=== PATIENT | female | born 1995 | race Caucasian/White ===

== ENCOUNTER 2019-11-29 16:31 | Emergency (ER) | payer MEDICAID, SELFPAY ==
--- NOTE | 2019-11-29 16:40 | USR_ITS ---
PROCEDURE INFORMATION: Exam: US First Trimester, Transabdominal and US , Transvaginal Exam date and time: 11/29/2019 5:34 PM Age: 23 years old Clinical indication: Pain; Other: Cramping; Gestational age or lmp: Patient unsure; Additional info: Threatened miscarriage TECHNIQUE: Imaging protocol: Real-time transabdominal obstetrical ultrasound of the maternal pelvis and a first trimester , less than 14 weeks 0 days, with image documentation. Transvaginal imaging was used for better evaluation of the fetus and adnexa. COMPARISON: US transvaginal [id number] 08/15/2018 3:30 PM FINDINGS: Gestation: Single intrauterine gestational sac with a mean diameter of 16 mm. No yolk sac, pole, or heart tones detected. MATERNAL: Uterus: The uterus measures 12.7 x 8.8 x 4.9 cm. Cervix: Unremarkable. Right adnexa: The right ovary measures 2.1 x 4.4 x 2.1 cm and is normal. Left adnexa: The left ovary measures 1.7 x 3.9 x 2.6 cm and is normal. Intraperitoneal space: No intraperitoneal free fluid. US/US OB <=14 wk fetus w transvag IMPRESSION: 1. Single intrauterine gestational sac with no pole or heart tones detected. This may represent a normal early . Viability follow-up with ultrasound in 14 or greater days recommended.
[2019-11-29 16:45] VITALS: BP 132/84; PULSE 82; RESP 18; TEMP 36.7; O2SAT 100
[2019-11-29 16:53] VITALS: BMI 31.2
--- NOTE | 2019-11-29 17:59 | ED_ITS ---
HPI - Abdominal Pain General: Chief Complaint: Abdominal Pain Stated Complaint: ref from [facility] Time Seen by Provider: 11/29/19 17:14 Source: patient Mode of arrival: ambulatory Limitations: no limitations History of Present Illness: HPI narrative: Patient is a 23-year-old female who presents to ED today after she was sent by [facility] for an OB ultrasound. She went to their facility earlier today complaining of lower abdominal pain and thought she might be . Unknown LMP (states she believes she had a period 4 months ago/periods are very irregular) but thought she might be 4 to 6 weeks along. Patient had a positive test at their facility. hCG at that visit was 21,677. Patient's lab work overall looked okay. White count was 10.5. She had questionable UTI so they placed her on Macrobid. She had trichomonas present in her urine so they gave her 2g Flagyl. She was sent to our facility for US to rule out ectopic. Associated Symptoms: Denies change in bowel habits, change in stool character, chills, diarrhea, dysuria, fever(s), hematuria, nausea and vomiting Review of Systems Const: Denies: fever(s), chills, body aches, fatigue or malaise ENMT: Denies: throat pain or odynophagia Card: Denies: chest pain Resp: Denies: dyspnea GI: Reports: abdominal pain; Denies: nausea, vomiting, diarrhea, change in bowel habits or change in stool character : Reports: pelvic pain; Denies: flank pain, difficulty voiding, dysuria, urinary frequency, urinary urgency, urinary hesitancy, hematuria, genital lesions, genital pruritis, vaginal odor, vaginal bleeding or vaginal discharge Musc: Denies: neck pain, back pain, extremity pain, extremity swelling, joint pain or joint swelling Skin/Breast: Denies: rash Neuro: Denies: headache(s), numbness in extremities, weakness in extremities or sensory changes PFSH ED PFSH: Social History (Updated 08/16/19 @ 18:24 by Leidy Fuentes LPN) Smoking and tobacco status: current every day smoker Alcohol intake: current Female Reproductive History: : 2 Physical Exam Const: COMMON NORMALS: no acute distress, average body habitus, patient oriented x3, no limitations, healthy appearing, alert and well nourished ORIENTATION/CONSCIOUSNESS: Yes oriented to person, Yes oriented to place and Yes oriented to time Resp: COMMON NORMALS: normal respiratory effort and clear to auscultation bilaterally AUSCULTATION: clear to auscultation bilaterally Cardio: COMMON NORMALS: regular rate and regular rhythm RATE: regular rate RHYTHM: regular rhythm GI: COMMON NORMALS: Normal to inspection, nondistended, normoactive bowel sounds present, Soft to palpation, No hepatosplenomegaly present and no masses PALPATION: Yes Soft to palpation, Yes Tenderness to palpation present (GI) (mild lower abdomen ) and Yes No hepatosplenomegaly present : COMMON NORMALS: Yes no CVA tenderness BLADDER/KIDNEY EXAM: Yes no CVA tenderness EXTERNAL FEMALE EXAM: Yes normal appearance of the urethra SPECULUM EXAM - VAGINA: No vaginal bleeding and Yes Vaginal discharge present Vaginal discharge present: yellow SPECULUM EXAM - CERVIX: Yes Cervical os closed, No Cervical bleeding, Yes mucoid cervix, Yes Abnormal cervical discharge present yellow and Yes Cervical tenderness present BIMANUAL EXAM - VAGINA & UTERUS: Yes cervical motion tenderness (mild) and Yes Cervical tenderness present BIMANUAL EXAM - ADNEXA, OTHER: Yes normal adnexae OB/EXTERNAL & SPECULUM: No vaginal bleeding Back/Pelvis: COMMON NORMALS: no CVA tenderness Neuro: COMMON NORMALS: patient oriented x3 SENSORIUM/ORIENTATION: Yes alert, Yes oriented to person, Yes oriented to place and Yes oriented to time Skin: COMMON NORMALS: no rashes or lesions noted GENERAL SKIN EXAM: no rashes or lesions noted Course Vital Signs: Vital signs: Vital Signs Temperature 98.0 F 11/29/19 16:45 Pulse Rate 82 11/29/19 16:45 Respiratory Rate 14 11/29/19 18:42 Blood Pressure 132/84 11/29/19 16:45 Pulse Oximetry 98 11/29/19 18:42 MDM - Abdominal Pain MDM Narrative: Medical decision making narrative: Due to patient being positive for trich, I went ahead and performed pelvic exam to obtain cultures for chlamydia/gonorrhea. She does have diffuse discharge present with mucoid cervix and therefore will be treated prophylactically with rocephin and azithromycin. US did detect early intrauterine . Will write for outpatient order for repeat US in 14 days. Case management will work on getting her an OB follow up appointment. Imaging Data ^: US OB: Radiologist's impression: [address] [place] [address] Ultrasound Report Signed Patient: Jessica Infante Unit #: [id number] : [id number] Age/Sex: 23 / F ADM Date: 11/29/19 Loc: ER Room/Bed: Attending Dr: Ordering Provider/Ordering MD: Debra Austin MD Date of Service: 11/29/19 Procedure(s): US OB <=14 wk fetus w transvag Accession Number(s): [id number] Report Number: [id number] PROCEDURE INFORMATION: Exam: US First Trimester, Transabdominal and US , Transvaginal Exam date and time: 11/29/2019 5:34 PM Age: 23 years old Clinical indication: Pain; Other: Cramping; Gestational age or lmp: Patient unsure; Additional info: Threatened miscarriage TECHNIQUE: Imaging protocol: Real-time transabdominal obstetrical ultrasound of the maternal pelvis and a first trimester , less than 14 weeks 0 days, with image documentation. Transvaginal imaging was used for better evaluation of the fetus and adnexa. COMPARISON: US transvaginal [id number] 08/15/2018 3:30 PM FINDINGS: Gestation: Single intrauterine gestational sac with a mean diameter of 16 mm. No yolk sac, pole, or heart tones detected. MATERNAL: Uterus: The uterus measures 12.7 x 8.8 x 4.9 cm. Cervix: Unremarkable. Right adnexa: The right ovary measures 2.1 x 4.4 x 2.1 cm and is normal. Left adnexa: The left ovary measures 1.7 x 3.9 x 2.6 cm and is normal. Intraperitoneal space: No intraperitoneal free fluid. US/US OB <=14 wk fetus w transvag IMPRESSION: 1. Single intrauterine gestational sac with no pole or heart tones detected. This may represent a normal early . Viability follow-up with ultrasound in 14 or greater days recommended. Dictated By: David Aguilar Signed By: David Aguilar Signed Date/Time: 11/29/19 175 DD/ 47 Discharge Plan Discharge Patient Disposition: Home Clinical Impression: Trichomonas vaginitis, Polysubstance abuse Qualifiers: Weeks of gestation: less than 8 weeks Qualified Code(s): Z3A.01 - Less than 8 weeks gestation of Condition: Stable Prescriptions: No Action Tylenol 325 mg Tablet 325 mg PO QID PRN (Reason: Pain) RF: 0 Zofran 4 mg Tablet 4 mg PO Q6H PRN (Reason: N/V) RF: 0 Discharge Orders: Discharge Order (Routine); Ordered 11/29/19 Ordered By: Julia Osorio Patient Instructions: (ED), Trichomoniasis (ED), Vaginitis (ED), Trichomoniasis - Female Activity Restrictions/Additional Instructions: Case management should be contacting you shortly to set you up with an OB appointment. You need to return to the emergency department for worsening abdominal pain, bleeding, fevers 100.4 or greater, or any other concerns you may have. Discharge Date/Time: 11/29/19 18:42 Coding Level of Care Code ED Supervisor Warping Department for Denag Fwd Exam Detailed
[2019-11-29] MEDS: cefTRIAXone 1,000 mg SDV 250 MG IM (18:41)
[2019-11-29] MEDS: azithromycin 250 mg Tablet 1000 MG PO (18:41)
[2019-11-29 18:42] VITALS: RESP 14; O2SAT 98
--- NOTE | 2019-11-30 11:40 | DCPLANNER ---
Addendum entered by Lalitha Damian 12/01/19 11:54: Patient has an appointment scheduled for Saturday, December 14, 2019 at 2:30 for an ultrasound. An appointment with Dr. Roach will be scheduled after ultrasound is completed. Clinic will call patient with appointment information. Original Note: exercise manager had message to schedule a follow up appointment for [facility] with [facility]. exercise manager called [facility], spoke with Ciarra, gave clinic patients information. exercise manager was told that patients information would be printed and reviewed. Clinic will call patient with appointment information.
--- NOTE | 2019-12-01 10:56 | DCPLANNER ---
Addendum entered by Lalitha Damian 12/01/19 11:55: Patient has an ultrasound scheduled at the [facility]. site operations manager spoke with Ciarra, patient is having the ultrasound done at the clinic, then a follow up appointment will be scheduled with Dr. Roach. site operations manager called centralized scheduling and cancelled the order that was sent to scheduling. Original Note: site operations manager had message to schedule an out patient OB ultrasound. site operations manager faxed order to centralized scheduling, will call for appointment.
--- NOTE | 2019-12-26 09:06 | DCPLANNER ---
Patient had a follow up appointment scheduled for 12.14.19 with [facility] - patient did attend appointment.
== END 2019-11-29 18:42 | disposition home or self-care (01) ==
PROVIDERS: Emergency Provider Physician Assistant
DX: O98.311 Other infections with a predominantly sexual mode of transmission complicating pregnancy, first trimester (principal); A59.01 Trichomonal vulvovaginitis; O99.321 Drug use complicating pregnancy, first trimester; F19.10 Other psychoactive substance abuse, uncomplicated; O99.331 Smoking (tobacco) complicating pregnancy, first trimester; F17.210 Nicotine dependence, cigarettes, uncomplicated; Z3A.01 Less than 8 weeks gestation of pregnancy
CPT/HCPCS: 12345; 76801; 76817; 87210; 87491; 87591; 96372; 99282; 99283; J0696; Q0144

== ENCOUNTER → 2019-12-14 14:37 | Outpatient (BNVA) | payer MEDICAID, SELFPAY | PROVIDERS: Visit Provider Obstetrics & Gynecology | DX: Z36.87 Encounter for antenatal screening for uncertain dates (principal) | CPT/HCPCS: 76817 ==

== ENCOUNTER → 2019-12-25 15:27 | Outpatient (BNVA) | payer OTHER, SELFPAY | PROVIDERS: Visit Provider Emergency Medicine | DX: Z11.59 Encounter for screening for other viral diseases (principal) | CPT/HCPCS: 87635 ==

== ENCOUNTER → 2020-01-06 17:43 | Outpatient (BNVA) | payer MEDICAID, SELFPAY | PROVIDERS: Visit Provider Nurse Practitioner Family | DX: R39.9 Unspecified symptoms and signs involving the genitourinary system (principal) | CPT/HCPCS: 81000; 87086 ==

== ENCOUNTER 2020-04-11 11:02 | Emergency (ER) | payer MEDICAID, SELFPAY ==
[2020-04-11 11:31] VITALS: BP 132/82; PULSE 103; RESP 14; TEMP 36.6; O2SAT 93; BMI 38.7
--- NOTE | 2020-04-11 11:47 | XR_ITS ---
WS: [id number] Exam: XR chest 1V portable [id number] Date/Time of Exam: 04/11/2020 11:51 AM Reason For Exam: dyspnea/cough Comparison 03/02/2019. Findings: The lungs are clear and fully expanded. Costophrenic angles are sharp. No infiltrates. Bronchovascula r relief appears normal. Cardiac silhouette is unremarkable. Bony elements are intact. XR/XR chest 1V portable [id number] IMPRESSION: Unremarkable chest radiograph.
--- NOTE | 2020-04-11 12:17 | CT_ITS ---
WS: [id number] CTA OF THE CHEST WITH PULMONARY EMBOLISM PROTOCOL TECHNIQUE: High-resolution contrast enhanced CTA of the chest with coronal and sagittal reformatted i mages with pulmonary embolism protocol. MIP images are also reviewed. CLINICAL INFORMATION: dyspnea, tachycardia COMPARISON: None. DLP: 545.[address] scans at [facility] use at least one of these dose optimization techniques: automat ed exposure control; mA and/or kV adjustment per patient size (includes targeted exams where dose is matched to clinical indication); or iterative reconstruction. FINDINGS: Patient 6 months . No significant opacification of the pulmonary arteries. Pulmonary veins, left heart, and aorta are op acified. Pulmonary arteries cannot be assessed for embolus. Patient refused additional contrast. Normal caliber thoracic aorta. No evidence of aortic dissection. No mediastinal or hilar lymphadenopa thy. No axillary lymphadenopathy. No suspicious pulmonary parenchymal abnormalities. No acute pulmona ry infiltrates. No focal pneumonia or pleural fluid. Slight atelectasis in the lingula and right midd le lobe. CT/CT angio chest PE protcl [id number] IMPRESSION: 1. No contrast opacification of the pulmonary arteries. Pulmonary arteries can not be assessed for embolus. Patient declined additional contrast. 2. Normal caliber thoracic aorta. No evidence of aortic dissection. 3. No acute pulmonary infiltrates. 4. Slight atelectasis in the lingula and right middle lobe. Attempted Anselmo Muller DO at 04/11/2020 2:07 PM.
--- NOTE | 2020-04-11 12:23 | W.ED.SOB ---
HPI - SOB/Dyspnea General: Chief Complaint: Shortness of Breath/Dyspnea Stated Complaint: SOB Time Seen by Provider: 04/11/20 11:39 History of Present Illness: HPI Narrative: 24-year-old female presents emergency room with complaints of shortness of breath cough and wheezing. She reports with any even minimal activity she becomes profoundly short of breath and is unable to complete even at rest she is somewhat short of breath she denies any chest pain. 3 days ago she was seen at one local clinics and had a rapid antigen test done and was told that it was negative. She denies any diarrhea but has had anosmia. Patient is approximately [address] Brayan MORRIS elicited complaint: shortness of breath and cough Onset (ago): day(s) Context: recent illness Timing: constant Severity: moderate Exacerbating factors: exertion Relieving factors: rest and bronchodilators Associated symptoms: Deny abdominal pain, chest congestion, chest pain, cough, diaphoresis, dizziness, extremity pain, fever(s), hemoptysis, lightheadedness, myalgias, nausea, orthopnea, palpitations, paresthesias, polydipsia, polyuria, rash, sense of impending doom, syncope or vomiting Treatment prior to arrival: none Review of Systems Const: Denies: fever(s) ENMT: Denies: throat pain, ear or mastoid pain, nasal discharge or nasal congestion Card: Denies: chest pain, palpitations, lightheadedness, syncope or orthopnea Resp: Denies: hemoptysis or chest congestion GI: Denies: abdominal pain, nausea or vomiting : Denies: flank pain, difficulty voiding, dysuria, urinary frequency or urinary urgency Musc: Denies: extremity pain Skin/Breast: Denies: rash or pruritus Neuro: Denies: dizziness Endo: Denies: polyuria or polydipsia PFSH ED PFSH: Family History Denies family history of Colon cancer Ovarian cancer Diabetes Clotting disorder Heart disease Hypercholesteremia Breast cancer Bleeding disorder Hypertension Uterine cancer Thyroid disease Stroke Social History Smoking and tobacco status: current every day smoker Alcohol intake: current Additional social history: - Tobacco use: Alcohol use: Drug use: Physical Exam Const: COMMON NORMALS: no acute distress GENERAL APPEARANCE: cooperative and comfortable ORIENTATION/CONSCIOUSNESS: Yes awake, Yes oriented to person, Yes oriented to place and Yes oriented to time HENMT: COMMON NORMALS: normocephalic, atraumatic and hearing grossly normal bilaterally HEAD & SCALP: normocephalic and atraumatic Neck/C-Spine: COMMON NORMALS: no JVD Resp: COMMON NORMALS: normal respiratory effort, No retractions and No use of accessory muscles AUSCULTATION: wheezes Cardio: COMMON NORMALS: no JVD, regular rate, regular rhythm and No murmurs present (Cardio) RATE: regular rate RHYTHM: regular rhythm GI: COMMON NORMALS: Soft to palpation and No hepatosplenomegaly present AUSCULTATION: Yes normoactive bowel sounds PALPATION: Yes Soft to palpation, No Tenderness to palpation present (GI), No Guarding due to palpation present (GI) and Yes No hepatosplenomegaly present Extremity: COMMON NORMALS: normal to inspection, capillary refill normal, no clubbing, cyanosis or edema, no calf tenderness and no pedal edema Neuro: SENSORIUM/ORIENTATION: Yes oriented to person, Yes oriented to place and Yes oriented to time Skin: COMMON NORMALS: no rashes or lesions noted GENERAL SKIN EXAM: no rashes or lesions noted Course Vital Signs: Vital signs: Vital Signs Temperature 96.0 F L 04/11/20 15:21 Pulse Rate 97 04/11/20 15:59 Respiratory Rate 18 04/11/20 15:59 Blood Pressure 136/94 04/11/20 15:59 Pulse Oximetry 97 04/11/20 15:59 MDM - SOB/Dyspnea MDM Narrative: Medical decision making narrative: Antigen negative PCR was sent out remainder the work-up unremarkable. Patient does have good response to bronchodilator. Encouraged her to continue the antibiotic steroids that she is previously given. Use albuterol inhaler 2 puffs every 4 hours while awake follow-up with Dr. Brayan mary if has further problems recommend that she remain in self quarantine until the PCR results return. Lab Data: Labs: Lab Results 04/11/20 04/11/20 04/11/20 Range/Units 13:00 13:00 13:04 WBC 15.1 H (4.0-10.0) 10^3/ uL RBC 4.11 (4.1-5.3) 10^6/u L Hgb 13.0 (11.5-15.3) g/dL Hct 38.7 (37.0-47.0) % MCV 94.2 (81-99) fL MCH 31.6 (28.0-34.0) pg MCHC 33.6 (30.0-36.0) g/dL RDW 13.3 (12.1-15.1) % Plt Count 232 (130-400) 10^3/c mm MPV 10.6 H (7.4-10.4) fL Neut % (Auto) 75.7 % Lymph % (Auto) 13.9 % [place] % (Auto) 5.8 % Eos % (Auto) 2.5 % Baso % (Auto) 0.5 % Neut # (Auto) 11.42 H (1.8-7.7) 10^3/u L Lymph # (Auto) 2.1 (0.8-4.8) 10^3/u L [place] # (Auto) 0.9 (0.2-0.9) 10^3/u L Eos # (Auto) 0.4 (0.0-0.8) 10^3/u L Baso # (Auto) 0.1 (0.0-0.1) 10^3/u L Nucleated RBC % (a uto) 0 % Nucleated RBCs # 0.0 /100WBC Sodium 135 L (136-145) mmol/L Potassium 4.0 (3.5-5.1) mmol/L Chloride 104 (98-107) mmol/L Carbon Dioxide 23 (22-29) mmol/L Anion Gap 12.0 (5-19) BUN 9 (6-20) mg/dL Creatinine 0.4 L (0.5-0.9) mg/dL GFR Calculation 194.5 H (90-130) mL/min Glucose 91 (65-115) mg/dL Calculated Osmolal ity 278 L (285-295) mOsm/k g Calcium 8.9 (8.5-10.5) mg/dL Total Bilirubin 0.2 (0.15-1.2) mg/dL AST 20 (0-32) U/L ALT 35 H (0-33) U/L Alkaline Phosphata se 75 (35-105) IU/L Total Protein 6.8 (6.6-8.7) g/dL Albumin 3.4 L (3.5-5.2) g/dL Globulin 3.4 (1.3-4.6) g/dL SARS-CoV-2 Ag (Rap id) Negative (Negative) Discharge Plan Discharge Patient Disposition: Home Clinical Impression: Acute bronchospasm Condition: Stable Prescriptions: No Action amoxicillin-pot clavulanate [Augmentin] 875-125 mg tablet 1 tab PO BID 10 Days Qty: 20 RF: 0 acetaminophen [Tylenol] 325 mg Tablet 325 mg PO QID PRN (Reason: Pain) RF: 0 ondansetron HCl [Zofran] 4 mg Tablet 4 mg PO Q6H PRN (Reason: N/V) RF: 0 27 mg iron- 0.8 mg Tablet 1 tab PO DAILY RF: 0 albuterol sulfate 90 mcg/actuation Hfa Aerosol Inhaler 2 puff INHALATION 6XD PRN (Reason: Shortness Of Breath) RF: 0 Discharge Orders: Discharge ED (Routine); Ordered 04/11/20 Ordered By: Anselmo Muller Activity Restrictions/Additional Instructions: Use albuterol every 4 hours while awake. Follow-up with your primary care doctor within the week. Return to the ER if you have worsening problems. Coding Level of Care Code ED Parking Regulation Enforcement Officer for Jannette Stoner
[2020-04-11 13:06] LABS: Basophils # 0.1 10^3/uL (0.0-0.1); Basophils % 0.5 %; Eosinophils # 0.4 10^3/uL (0.0-0.8); Eosinophils % 2.5 %; Hematocrit 38.7 % (37.0-47.0); Lymphocytes # 2.1 10^3/uL (0.8-4.8); Lymphocytes % 13.9 %; Mean Corpuscular HGB Conc 33.6 g/dL (30.0-36.0); Mean Corpuscular Hemoglobin 31.6 pg (28.0-34.0); Mean Corpuscular Volume 94.2 fL (81-99); Mean Platelet Volume 10.6 fL (7.4-10.4); Monocytes # 0.9 10^3/uL (0.2-0.9); Monocytes % 5.8 %; Neutrophils # 11.42 10^3/uL (1.8-7.7); Neutrophils % 75.7 %; Nucleated Red Blood Cells % 0 %; Platelet Count 232 10^3/cmm (130-400); Red Blood Count 4.11 10^6/uL (4.1-5.3); Red Cell Distribution Width 13.3 % (12.1-15.1); White Blood Count 15.1 10^3/uL (4.0-10.0)
[2020-04-11 13:36] LABS: Alanine Aminotransferase 35 U/L (0-33); Albumin Level 3.4 g/dL (3.5-5.2); Alkaline Phosphatase 75 IU/L (35-105); Aspartate Amino Transferase 20 U/L (0-32); Blood Urea Nitrogen 9 mg/dL (6-20); Calcium 8.9 mg/dL (8.5-10.5); Carbon Dioxide 23 mmol/L (22-29); Chloride 104 mmol/L (98-107); Globulin 3.4 g/dL (1.3-4.6); Glomerular Filtration Rate 194.5 mL/min (90-130); Glucose 91 mg/dL (65-115); Osmolality Calculated 278 mOsm/kg (285-295); Sodium 135 mmol/L (136-145); Total Bilirubin 0.2 mg/dL (0.15-1.2); Total Protein 6.8 g/dL (6.6-8.7)
[2020-04-11] MEDS: iohexol 350 mg/mL 100 mL Btl IV (13:45)
[2020-04-11 14:02] LABS: SARS Covid-2 Antigen Negative (Negative)
[2020-04-11] MEDS: ipratropium-albuterol 3 mL Neb INHALATION (15:12)
[2020-04-11 15:14] VITALS: PULSE 97; RESP 20; O2SAT 98
[2020-04-11 15:21] VITALS: BP 138/86; PULSE 99; RESP 17; TEMP 35.6; O2SAT 93
[2020-04-11 15:23] VITALS: O2SAT 94; O2SAT 97
[2020-04-11 15:59] VITALS: BP 136/94; PULSE 97; RESP 18; O2SAT 97
[2020-04-12 17:07] LABS: Coronavirus Test Green County Not Detected
--- NOTE | 2020-04-13 08:22 | PC.NURSE ---
Pt called and notified of negative COVID result.
== END 2020-04-11 16:01 | disposition home or self-care (01) ==
PROVIDERS: Emergency Provider Family Medicine
DX: J98.01 Acute bronchospasm (principal); F17.210 Nicotine dependence, cigarettes, uncomplicated
CPT/HCPCS: 12345; 71045; 71275; 80053; 85025; 87426; 87635; 94640; 94760; 99282; 99283; Q9967

== ENCOUNTER → 2021-02-23 17:34 | Outpatient (BNVA) | payer BC, SELFPAY | PROVIDERS: Visit Provider Registered Nurse Neonatal Intensive Care | DX: S99.912A Unspecified injury of left ankle, initial encounter (principal); X58.XXXA Exposure to other specified factors, initial encounter | CPT/HCPCS: 73610 ==

== ENCOUNTER → 2021-04-05 13:23 | Outpatient (BNVA) | payer BC, SELFPAY | PROVIDERS: Visit Provider Nurse Practitioner Family | DX: Z20.822 Contact with and (suspected) exposure to COVID-19 (principal) | CPT/HCPCS: 87635 ==

== ENCOUNTER → 2021-04-11 11:58 | Outpatient (BNVA) | payer BC, SELFPAY | PROVIDERS: Visit Provider Registered Nurse Neonatal Intensive Care | DX: N39.0 Urinary tract infection, site not specified (principal); R10.9 Unspecified abdominal pain; R10.2 Pelvic and perineal pain | CPT/HCPCS: 81000; 81025 ==

== ENCOUNTER 2021-07-04 22:30 | Emergency (ER) | payer MEDICAID, SELFPAY ==
[2021-07-04 22:38] VITALS: BP 130/86; PULSE 96; RESP 18; TEMP 36.8; O2SAT 99; BMI 44.9
[2021-07-05 00:01] VITALS: BP 141/89; PULSE 86; RESP 17; O2SAT 100
[2021-07-05] MEDS: HYDROcodone-acetaminophen 5-325 mg Tablet 1 TAB PO (00:23)
--- NOTE | 2021-07-05 00:25 | W.ED.FEMALGU ---
HPI - Female Genitourinary General: Chief complaint: Vaginal Bleeding Stated complaint: possible miscarriage Time Seen by Provider: 07/04/21 22:36 Source: patient Mode of arrival: ambulatory Limitations: no limitations History of Present Illness: 25-year-old female who currently on the Depo shot she states that her last Depo shot was almost 3 months ago and she is post to get 1 every 3 months she had that over the last 3 days she has had some vaginal bleeding today it was heavy in nature and passed a clot with some abdominal cramping. She was concerned that she may be and having a miscarriage. She denies any pain currently just cramping. Denies any fever denies any vomiting or diarrhea denies any vaginal discharge. Associated symptoms: Reports abdominal pain; Deny headache(s) Review of Systems Const: Denies: fever(s), chills, body aches or change in appetite Eyes: Denies: blurry vision or eye discomfort ENMT: Denies: throat pain or dental pain Card: Denies: chest pain Resp: Denies: dyspnea GI: Reports: abdominal pain and GI cramping : Reports: vaginal bleeding Musc: Denies: neck pain or back pain Skin/Breast: Denies: rash Neuro: Denies: headache(s) Psych: Denies: depression [place]/Lymph: Denies: easy bruising All/Imm: Denies: urticaria PFSH ED PFSH: Family History Denies family history of Colon cancer Ovarian cancer Diabetes Clotting disorder Heart disease Hypercholesteremia Breast cancer Bleeding disorder Hypertension Uterine cancer Thyroid disease Stroke Social History Smoking and tobacco status: current every day smoker Alcohol intake: current Additional social history: - Tobacco use: Alcohol use: Drug use: Physical Exam Const: COMMON NORMALS: no acute distress, patient oriented x3 and healthy appearing HENMT: COMMON NORMALS: normocephalic and atraumatic HEAD & SCALP: normocephalic and atraumatic Eye: COMMON NORMALS: Equal, round and reactive pupils present and EOMs intact bilaterally PUPIL: Yes Equal, round and reactive pupils present Neck/C-Spine: COMMON NORMALS: full ROM and supple Chest: COMMONS NORMALS: normal inspection of the chest and normal palpation of entire chest wall Resp: COMMON NORMALS: normal respiratory effort, No retractions, No use of accessory muscles and clear to auscultation bilaterally AUSCULTATION: clear to auscultation bilaterally Cardio: COMMON NORMALS: regular rate, regular rhythm and No murmurs present (Cardio) RATE: regular rate RHYTHM: regular rhythm GI: COMMON NORMALS: Normal to inspection, nondistended, normoactive bowel sounds present, Soft to palpation, non-tender and no masses PALPATION: Yes Soft to palpation Extremity: COMMON NORMALS: normal to inspection and full ROM Neuro: COMMON NORMALS: patient oriented x3, moves all extremities and no focal motor deficits Psych: COMMON NORMALS: mental status grossly normal, Normal thought process present and cooperative THOUGHT PROCESS: Normal thought process present Skin: COMMON NORMALS: no rashes or lesions noted and no wounds GENERAL SKIN EXAM: no rashes or lesions noted Course Vital Signs: Vital signs: Vital Signs Temperature 98.2 F 07/04/21 22:38 Pulse Rate 86 07/05/21 00:55 Respiratory Rate 17 07/05/21 00:01 Blood Pressure 141/89 07/05/21 00:55 Pulse Oximetry 98 07/05/21 00:55 MDM - Female Medical Decision Making Patient presents here with vaginal bleeding likely breakthrough period. She is not here her exam is benign CBC is normal she is to follow-up with her physician that she gets her Depo shot from she is return if worsening she understands agrees to plan. Lab Data : 07/04/21 00:31 Laboratory Results WBC 12.1 10^3/uL (4.0-10.0) H 07/04/21 00:31 RBC 5.12 10^6/uL (4.1-5.3) 07/04/21 00:31 Hgb 15.3 g/dL (11.5-15.3) 07/04/21 00:31 Hct 45.7 % (37.0-47.0) 07/04/21 00:31 MCV 89.3 fl (81-99) 07/04/21 00:31 MCH 29.9 pg (28.0-34.0) 07/04/21 00:31 MCHC 33.5 g/dL (30.0-36.0) 07/04/21 00:31 RDW 12.6 % (12.1-15.1) 07/04/21 00:31 Plt Count 288 10^3/cmm (130-400) 07/04/21 00:31 MPV 10.3 fL (7.4-10.4) 07/04/21 00:31 Neut % (Auto) 59.8 % 07/04/21 00:31 Lymph % (Auto) 29.1 % 07/04/21 00:31 [place] % (Auto) 8.0 % 07/04/21 00:31 Eos % (Auto) 2.2 % 07/04/21 00:31 Baso % (Auto) 0.7 % 07/04/21 00:31 Neut # (Auto) 7.23 10^3/uL (1.8-7.7) 07/04/21 00:31 Lymph # (Auto) 3.5 10^3/uL (0.8-4.8) 07/04/21 00:31 [place] # (Auto) 1.0 10^3/uL (0.2-0.9) H 07/04/21 00:31 Eos # (Auto) 0.3 10^3/uL (0.0-0.8) 07/04/21 00:31 Baso # (Auto) 0.1 10^3/uL (0.0-0.1) 07/04/21 00:31 Nucleated RBC % (auto) 0 % 07/04/21 00:31 Nucleated RBCs # 0.0 /100WBC 07/04/21 00:31 Ser , Semi-Qnt 0.50 mIU/mL 07/04/21 00:31 Discharge Plan Discharge Patient Disposition: Home Clinical Impression: Vaginal bleeding Condition: Stable Prescriptions: No Action acetaminophen [Tylenol] 325 mg Tablet 325 mg PO QID PRN (Reason: Pain) 0RF ondansetron HCl [Zofran] 4 mg Tablet 4 mg PO Q6H PRN (Reason: N/V) 0RF Discharge Orders: Discharge ED (Routine); Ordered 07/05/21 Ordered By: Debra Austin Discharge Diet: Advance as tolerated Discharge Activity: Resume usual activity Patient Instructions: Abnormal (Dysfunctional) Uterine Bleeding (ED) Coding Level of Care Code ED Meter Tester Primary for Chg Fwd Exam Comprehensive
[2021-07-05] MEDS: ondansetron 4 MG Tablet PO (00:26)
[2021-07-05 00:30] LABS: Basophils # 0.1 10^3/uL (0.0-0.1); Basophils % 0.7 %; Eosinophils # 0.3 10^3/uL (0.0-0.8); Eosinophils % 2.2 %; Hematocrit 45.7 % (37.0-47.0); Hemoglobin 15.3 g/dL (11.5-15.3); Lymphocytes # 3.5 10^3/uL (0.8-4.8); Lymphocytes % 29.1 %; Mean Corpuscular HGB Conc 33.5 g/dL (30.0-36.0); Mean Corpuscular Hemoglobin 29.9 pg (28.0-34.0); Mean Corpuscular Volume 89.3 fl (81-99); Mean Platelet Volume 10.3 fL (7.4-10.4); Neutrophils # 7.23 10^3/uL (1.8-7.7); Neutrophils % 59.8 %; Nucleated Red Blood Cells % 0 %; Platelet Count 288 10^3/cmm (130-400); Red Blood Count 5.12 10^6/uL (4.1-5.3); Red Cell Distribution Width 12.6 % (12.1-15.1); White Blood Count 12.1 10^3/uL (4.0-10.0)
[2021-07-05 00:55] VITALS: BP 141/89; PULSE 86; O2SAT 98
[2021-07-05 01:31] VITALS: BP 140/87; PULSE 91; RESP 17; O2SAT 98
== END 2021-07-05 01:32 | disposition home or self-care (01) ==
PROVIDERS: Emergency Provider Emergency Medicine
DX: N93.9 Abnormal uterine and vaginal bleeding, unspecified (principal); F17.200 Nicotine dependence, unspecified, uncomplicated
CPT/HCPCS: 84702; 85025; 86850; 86900; 99283; Q0162

== ENCOUNTER → 2021-07-19 08:48 | Outpatient (BNVA) | payer MEDICAID, SELFPAY | PROVIDERS: Referring Provider Nurse Practitioner; Visit Provider Nurse Practitioner Family | DX: G56.03 Carpal tunnel syndrome, bilateral upper limbs (principal); M25.539 Pain in unspecified wrist; R20.0 Anesthesia of skin; R20.2 Paresthesia of skin; F17.210 Nicotine dependence, cigarettes, uncomplicated | CPT/HCPCS: 73110; 99204 ==

== ENCOUNTER → 2021-07-25 10:14 | Outpatient (BNVA) | payer MEDICAID, SELFPAY | PROVIDERS: Visit Provider Family Medicine | DX: R11.2 Nausea with vomiting, unspecified (principal); A08.4 Viral intestinal infection, unspecified | CPT/HCPCS: 81000; 81025 ==

== ENCOUNTER → 2021-08-21 11:01 | Outpatient (BNVA) | payer MEDICAID, SELFPAY | PROVIDERS: Referring Provider Nurse Practitioner Family; Visit Provider Specialist | DX: G56.03 Carpal tunnel syndrome, bilateral upper limbs (principal) | CPT/HCPCS: 95910; 95912 ==

== ENCOUNTER 2021-08-25 12:04 | Emergency (ER) | payer MEDICAID, SELFPAY ==
[2021-08-25 12:18] VITALS: BP 125/85; PULSE 82; RESP 16; TEMP 36.9; O2SAT 99; BMI 46.7
--- NOTE | 2021-08-25 12:54 | ECG_ITS ---
[facility] Test Date: 2021-08-25 Pat Name: Jessica Infante Department: Room: Gender: Female Animation Director: : 1995 Requested By: Turner Green Order Number: [id number] Brando MD: Ki Nickerson M.D. Measurements Intervals [place] Rate: 89 P: 56 MS: 147 QRS: 59 QRSD: 92 T: 39 QT: 356 QTc: 433 Interpretive Statements SINUS RHYTHM Compared to ECG 03/02/2019 16:02:44 No significant changes Electronically Signed On 08-25-2021 16:58:28 CDT by Ki Nickerson M.D. [id number]
--- NOTE | 2021-08-25 12:54 | XRR_ITS ---
PROCEDURE INFORMATION: Exam: XR Chest Exam date and time: 08/25/2021 1:32 PM Age: 25 years old Clinical indication: Pain; Angina pectoris; Additional info: Cp TECHNIQUE: Imaging protocol: XR of the chest. Views: 1 view. COMPARISON: CR XR chest 1V portable [id number] 04/11/2020 11:49 AM FINDINGS: Lungs: Unremarkable. No consolidation. Pleural spaces: Unremarkable. No pleural effusion. No pneumothorax. Heart/Mediastinum: Unremarkable. No cardiomegaly. Bones/joints: Unremarkable. XR/XR chest 1V portable [id number] IMPRESSION: No acute findings.
--- NOTE | 2021-08-25 12:58 | ED_ITS ---
HPI - Chest Pain General: Chief Complaint: Chest Pain Stated Complaint: Chest Pains, into shoulder area Time Seen by Provider: 08/25/21 12:41 History of Present Illness: Patient comes in with midsternal chest pain that started about an hour prior to arrival, describes it as sharp, constant, worse with inspiration or palpation. Denies any cardiac history. States she does smoke and she is on control. Associated symptoms: Deny abdominal pain, dyspnea, fever(s), nausea, palpitations or vomiting Review of Systems Const: Denies: fever(s) or body aches Eyes: Denies: change in vision or blurry vision ENMT: Denies: throat pain or odynophagia Card: Reports: chest pain; Denies: palpitations Resp: Denies: dyspnea or productive cough GI: Denies: abdominal pain, nausea or vomiting : Denies: flank pain or dysuria Musc: Denies: neck pain or back pain Skin/Breast: Denies: rash or pruritus Neuro: Denies: headache(s) or numbness in extremities Psych: Denies: anxiety or change in appetite Endo: Denies: polyuria or excessive sweating PFSH ED PFSH: Family History Denies family history of Colon cancer Ovarian cancer Diabetes Clotting disorder Heart disease Hypercholesteremia Breast cancer Bleeding disorder Hypertension Uterine cancer Thyroid disease Stroke Social History (Updated 08/21/21 @ 12:20 by Caity Cote LPN) Smoking and tobacco status: current every day smoker Alcohol intake: never History of recent travel: No Additional social history: - Tobacco use: Alcohol use: Drug use: Physical Exam Const: COMMON NORMALS: no acute distress, patient oriented x3, healthy appearing and alert HENMT: COMMON NORMALS: normocephalic and atraumatic HEAD & SCALP: norm ocephalic and atraumatic Eye: COMMON NORMALS: Equal, round and reactive pupils present and EOMs intact bilaterally PUPIL: Yes Equal, round and reactive pupils present Neck/C-Spine: COMMON NORMALS: full ROM and supple Chest: OTHER: Anterior chest wall tenderness to palpation Resp: COMMON NORMALS: normal respiratory effort, No retractions and No use of accessory muscles Cardio: COMMON NORMALS: regular rate and regular rhythm RATE: regular rate RHYTHM: regular rhythm GI: COMMON NORMALS: Normal to inspection, nondistended, normoactive bowel sounds present, Soft to palpation and non-tender PALPATION: Yes Soft to palpation Back/Pelvis: COMMON NORMALS: thoracic and lumbar spine normal to inspection and no thoracic nor lumbar tenderness Extremity: COMMON NORMALS: normal to inspection and full ROM Neuro: COMMON NORMALS: patient oriented x3 SENSORIUM/ORIENTATION: Yes alert Psych: COMMON NORMALS: mental status grossly normal and cooperative Skin: COMMON NORMALS: no rashes or lesions noted and no wounds GENERAL SKIN EXAM: no rashes or lesions noted Course Vital Signs: Vital signs: Vital Signs Temperature 98.4 F 08/25/21 12:18 Pulse Rate 82 08/25/21 12:18 Respiratory Rate 16 08/25/21 12:18 Blood Pressure 125/85 08/25/21 12:18 Pulse Oximetry 99 08/25/21 12:18 MDM - Chest Pain Medical Decision Making Patient comes in with midsternal chest pain that started about an hour prior to arrival, describes it as sharp, constant, worse with inspiration or palpation. Denies any cardiac history. States she does smoke and she is on control. On physical exam she has midsternal chest wall tenderness to palpation. Will check labs, EKG, and reassess. On reassessment I talked to the patient about the test results. Will discharge home at this time with precautions to return for worsening or changing symptoms. Lab Data : 08/25/21 13:30 08/25/21 13:30 Radiology Impressions Chest X-Ray 08/25/21 12:54 IMPRESSION: No acute findings. Chest CTA 08/25/21 14:10 IMPRESSION: 1. Negative for pulmonary embolus 2. Cholecystectomy. 3. Bilateral dependent atelectasis. Laboratory Results WBC 7.6 10^3/uL (4.0-10.0) 08/25/21 13:30 RBC 5.08 10^6/uL (4.1-5.3) 08/25/21 13:30 Hgb 15.2 g/dL (11.5-15.3) 08/25/21 13:30 Hct 43.1 % (37.0-47.0) 08/25/21 13:30 MCV 84.8 fl (81-99) 08/25/21 13:30 MCH 29.9 pg (28.0-34.0) 08/25/21 13:30 MCHC 35.3 g/dL (30.0-36.0) 08/25/21 13:30 RDW 12.7 % (12.1-15.1) 08/25/21 13:30 Plt Count 225 10^3/cmm (130-400) 08/25/21 13:30 MPV 11.0 fL (7.4-10.4) H 08/25/21 13:30 Neut % (Auto) 52.6 % 08/25/21 13:30 Lymph % (Auto) 34.0 % 08/25/21 13:30 [place] % (Auto) 8.8 % 08/25/21 13:30 Eos % (Auto) 3.4 % 08/25/21 13:30 Baso % (Auto) 1.1 % 08/25/21: Neut # (Auto) 3.99 10^3/uL (1.8-7.7) 08/25/21 13:30 Lymph # (Auto) 2.6 10^3/uL (0.8-4.8) 08/25/21 13:30 [place] # (Auto) 0.7 10^3/uL (0.2-0.9) 08/25/21 13:30 Eos # (Auto) 0.3 10^3/uL (0.0-0.8) 08/25/21 13:30 Baso # (Auto) 0.1 10^3/uL (0.0-0.1) 08/25/21 13:30 Nucleated RBC % (auto) 0 % 08/25/21 13:30 Nucleated RBCs # 0.0 /100WBC 08/25/21 13:30 D-Dimer 0.66 ug/mIFEU (0-0.59) H 08/25/21 13:30 Sodium 137 mmol/L (136-145) 08/25/21 13:30 Potassium 4.4 mmol/L (3.5-5.1) 08/25/21 13:30 Chloride 103 mmol/L (98-107) 08/25/21 13:30 Carbon Dioxide 22 mmol/L (22-29) 08/25/21 13:30 Anion Gap 16.4 (5-19) 08/25/21 13:30 BUN 10 mg/dL (6-20) 08/25/21 13:30 Creatinine 0.6 mg/dL (0.5-0.9) 08/25/21 13:30 GFR Calculation 120.8 mL/min (90-130) 08/25/21 13:30 Glucose 81 mg/dL (65-115) 08/25/21 13:30 Calculated Osmolality 282 mOsm/kg (285-295) L 08/25/21 13:30 Calcium 8.7 mg/dL (8.5-10.5) 08/25/21 13:30 Total Bilirubin 0.2 mg/dL (0.15-1.2) 08/25/21 13:30 AST 25 U/L (0-32) 08/25/21 13:30 ALT 34 U/L (0-33) H 08/25/21 13:30 Alkaline Phosphatase 70 IU/L (35-105) 08/25/21 13:30 Troponin T Baseline 6 ng/L (0-10) 08/25/21 13:30 Total Protein 7.3 g/dL (6.6-8.7) 08/25/21 13:30 Albumin 4.0 g/dL (3.5-5.2) 08/25/21 13:30 Globulin 3.3 g/dL (1.3-4.6) 08/25/21 13:30 HCG, Qual Negative (Negative) 08/25/21 13:10 Discharge Plan Discharge Patient Disposition: Home Clinical Impression: Nonspecific chest pain Condition: Stable Prescriptions: No Action ondansetron HCl 4 mg tablet 4 mg PO Q6H PRN (Reason: N/V) Qty: 20 0RF Advil 200 mg Tablet 200 mg PO Q6H PRN (Reason: Pain) 0RF Tylenol 325 mg Capsule 325 mg PO QID PRN (Reason: Pain) 0RF Discharge Orders: Discharge ED (Routine); Ordered 08/25/21 Ordered By: Turner Green Coding Level of Care Code ED Final Canoe Inspector for Chg Fwd Exam Comprehensive
[2021-08-25 13:38] LABS: Basophils # 0.1 10^3/uL (0.0-0.1); Basophils % 1.1 %; Eosinophils # 0.3 10^3/uL (0.0-0.8); Eosinophils % 3.4 %; Hematocrit 43.1 % (37.0-47.0); Hemoglobin 15.2 g/dL (11.5-15.3); Lymphocytes # 2.6 10^3/uL (0.8-4.8); Mean Corpuscular HGB Conc 35.3 g/dL (30.0-36.0); Mean Corpuscular Hemoglobin 29.9 pg (28.0-34.0); Mean Corpuscular Volume 84.8 fl (81-99); Monocytes # 0.7 10^3/uL (0.2-0.9); Monocytes % 8.8 %; Neutrophils # 3.99 10^3/uL (1.8-7.7); Neutrophils % 52.6 %; Nucleated Red Blood Cells % 0 %; Platelet Count 225 10^3/cmm (130-400); Red Blood Count 5.08 10^6/uL (4.1-5.3); Red Cell Distribution Width 12.7 % (12.1-15.1); White Blood Count 7.6 10^3/uL (4.0-10.0)
--- NOTE | 2021-08-25 13:44 | PC.NURSE ---
IV attempt made, unsuccessful access. Patient states she used to be a IV drug user.
[2021-08-25 13:46] LABS: HCG Qualitative Urine. Negative (Negative)
[2021-08-25 13:55] LABS: Alanine Aminotransferase 34 U/L (0-33); Alkaline Phosphatase 70 IU/L (35-105); Blood Urea Nitrogen 10 mg/dL (6-20); Calcium 8.7 mg/dL (8.5-10.5); Carbon Dioxide 22 mmol/L (22-29); Chloride 103 mmol/L (98-107); Creatinine Clr Calc Pharmacy 191.0715; Globulin 3.3 g/dL (1.3-4.6); Glomerular Filtration Rate 120.8 mL/min (90-130); Glucose 81 mg/dL (65-115); Osmolality Calculated 282 mOsm/kg (285-295); Sodium 137 mmol/L (136-145); Total Bilirubin 0.2 mg/dL (0.15-1.2); Total Protein 7.3 g/dL (6.6-8.7); Troponin(5th) Baseline 6 ng/L (0-10)
[2021-08-25 13:58] LABS: Anion Gap 16.4 (5-19); Aspartate Amino Transferase 25 U/L (0-32); Potassium 4.4 mmol/L (3.5-5.1); Slide Review Slide Review Perform
[2021-08-25 14:01] LABS: D Dimer 0.66 ug/mIFEU (0-0.59)
--- NOTE | 2021-08-25 14:10 | CTR_ITS ---
PROCEDURE INFORMATION: Exam: CTA Chest With Contrast Exam date and time: 08/25/2021 4:06 PM Age: 25 years old Clinical indication: Pain; Chest pressure; Additional info: Concern for pe TECHNIQUE: Imaging protocol: Computed tomographic angiography of the chest with contrast. 3D rendering (Not supervised by radiologist): MIP and/or 3D reconstructed images were created by the technologist. Radiation optimization: All CT scans at this facility use at least one of these dose optimization techniques: automated exposure control; mA and/or kV adjustment per patient size (includes targeted exams where dose is matched to clinical indication); or iterative reconstruction. Contrast material: OMNIPAQUE 350; Contrast volume: 52 ml; Contrast route: INTRAVENOUS (IV); COMPARISON: CT angio chest PE protcl [id number] 04/11/2020 1:35 PM RADIATION DOSE METRICS: Total DLP (mGy-cm): 539.94 FINDINGS: Pulmonary arteries: Normal. No pulmonary emboli. Aorta: Unremarkable. No aortic aneurysm. No aortic dissection. Lungs: Bilateral dependent atelectasis. Pleural spaces: Unremarkable. No pneumothorax. No pleural effusion. Heart: Unremarkable. No cardiomegaly. No pericardial effusion. Lymph nodes: Unremarkable. No enlarged lymph nodes. Gallbladder and bile ducts: Cholecystectomy. Bones/joints: Unremarkable. No acute fracture. Soft tissues: Unremarkable. CT/CT angio chest PE protcl [id number] IMPRESSION: 1. Negative for pulmonary embolus 2. Cholecystectomy. 3. Bilateral dependent atelectasis.
[2021-08-25] MEDS: iohexol 350 mg/mL 100 mL Btl IV (16:13)
--- NOTE | 2021-08-25 17:24 | PC.NURSE ---
Patient given water and snack okay per Dr. Green.
--- NOTE | 2021-08-25 17:25 | PC.NURSE ---
Hand IV removed per patient request. IJ placed by DR. Green on right side of neck still in place.
== END 2021-08-25 17:54 | disposition home or self-care (01) ==
PROVIDERS: Emergency Provider Emergency Medicine
DX: R07.89 Other chest pain (principal)
CPT/HCPCS: 71045; 71275; 80053; 81025; 84484; 85025; 85378; 93005; 99284; Q9967

== ENCOUNTER → 2021-10-02 09:32 | Outpatient (BNVA) | payer MEDICAID, SELFPAY | PROVIDERS: Visit Provider Obstetrics & Gynecology | DX: Z30.017 Encounter for initial prescription of implantable subdermal contraceptive (principal) | CPT/HCPCS: 81025 ==

== ENCOUNTER → 2021-12-04 13:39 | Outpatient (BNVA) | payer MEDICAID, SELFPAY | PROVIDERS: Visit Provider Nurse Practitioner Family | DX: G56.03 Carpal tunnel syndrome, bilateral upper limbs (principal) | CPT/HCPCS: 99214 ==

== ENCOUNTER 2021-12-05 14:27 | Emergency (ER) | payer MEDICAID, SELFPAY ==
[2021-12-05 15:31] VITALS: BP 148/60; PULSE 87; RESP 18; TEMP 36.7; O2SAT 100
--- NOTE | 2021-12-05 15:54 | ED_ITS ---
Documented by User: Soumya Eduardo, M[employer] BEAUTICIAN-C 12/05/21 17:24 HPI - Back Pain/Injury General: Chief Complaint: Back Pain/Injury Stated Complaint: Low back pain Time Seen by Provider: 12/05/21 14:38 History of Present Illness: Patient is in today with complaints of severe low back pain. She reports that she has chronic low back pain since childhood. She reports this pain is different. She reports the pain started last week on Saturday. She denies any known injury, trauma, fall. She reports that she just noticed pain in her back when she woke up and thought that she had slept wrong. She reports that last Saturday she went to the urgent care and they gave her a shot of Toradol and told her to make a follow-up for this coming . She reports that she just cannot make it to . She reports 7 out of 10 back pain currently. She denies that it radiates. She denies any loss of bowel or bladder control. She denies any changes in sensation. She denies . She states that she has had Nexplanon. She denies fever, chills. 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 Associated symptoms: Deny chills, dysuria, fever(s), hematuria or urinary urgency Review of Systems Const: Denies: fever(s), chills or body aches Card: Denies: chest pain, palpitations or irregular heart rhythm Resp: Denies: dyspnea : Denies: flank pain, difficulty voiding, dysuria, urinary frequency, urinary urgency, urinary hesitancy or hematuria Musc: Reports: back pain (Low back pain) PFS ED PFSH: Surgical History Hx laparoscopic cholecystectomy (~2017) Family History Denies family history of Colon cancer Ovarian cancer Diabetes Clotting disorder Heart disease Hypercholesteremia Breast cancer Bleeding disorder Hypertension Uterine cancer Thyroid disease Stroke Social History Smoking and tobacco status: current every day smoker History of recent travel: No Additional social history: - Tobacco use: Alcohol use: Drug use: Physical Exam Const: COMMON NORMALS: patient oriented x3 and alert NUTRITIONAL APPEARANCE: obese morbidly obese Resp: COMMON NORMALS: normal respiratory effort, No retractions, No use of accessory muscles and clear to auscultation bilaterally AUSCULTATION: clear to auscultation bilaterally Cardio: COMMON NORMALS: regular rate, regular rhythm, S1 normal heart sound present, S2 normal heart sound present and No murmurs present (Cardio) RATE: regular rate RHYTHM: regular rhythm HEART SOUNDS: S1 normal heart sound present and S2 normal heart sound present Back/Pelvis: LUMBAR SPINE/LOWER BACK: Yes normal to inspection, Yes lumbar spinal tenderness Lumbar spinal tenderness location: L4 and L5 and No mass present OTHER: Patient is examined in vertical flow room while awaiting a bed in the ER. Straight leg test is not performed at the initial examination. Patient is able to ambulate with a slight limp. No obvious bony or soft tissue deformities appreciated on inspection and palpation of the low back. There is moderate tenderness to the low back L4-L5 region. Neuro: COMMON NORMALS: patient oriented x3 SENSORIUM/ORIENTATION: Yes alert Course ED course: 1722?patient signed out to MANNY Au. Vital Signs: Vital signs: Vital Signs Temperature 98.0 F 12/05/21 15:31 Pulse Rate 87 12/05/21 15:31 Respiratory Rate 18 12/05/21 15:31 Blood Pressure 148/60 12/05/21 15:31 Pulse Oximetry 100 12/05/21 15:31 Oxygen Delivery Me thod 12/05/21 15:31 MDM - Back Pain/Injury Medical Decision Making 25-year-old obese female in for acute on chronic low back pain. She denies any recent injuries, traumas, falls. He has a history of IV drug use. She denies possibility of . She was seen in the urgent care 3 days ago. She reports that they gave her Toradol and tested her urine for UTI. She reports that the Toradol did not help much and her urine was negative for UTI. UA dip with hCG sent today in ER. We will do x-ray lumbar spine. Labs Laboratory Results Urine Color Yellow (Yellow) 12/05/21 16:07 Urine Appearance Clear (CLEAR) 12/05/21 16:07 Urine pH 6 (5-7) 12/05/21 16:[address] [place] 1.015 (1.005-1.030) 12/05/21 16:07 Urine Protein Neg (Negative) 12/05/21 16:07 Urine Glucose (UA) Norm (Normal) 12/05/21 16:07 Urine Ketones Negative (Negative) 12/05/21 16:07 Urine Blood 3+ (Negative) H 12/05/21 16:07 Urine Nitrate Negative (Negative) 12/05/21 16:07 Urine Bilirubin Neg (Negative) 12/05/21 16:07 Urine Urobilinogen Neg mg/dL (Negative) 12/05/21 16:07 Ur Leukocyte Esterase Negative (Negative) 12/05/21 16:07 Urine RBC 5-10 /hpf (0-2) H 12/05/21 16:07 Urine WBC Rare /hpf (0-5) 12/05/21 16:07 Ur Squamous Epith Cells 0-4 /hpf (0-5) H 12/05/21 16:07 Amorphous Sediment Not Reportable 12/05/21 16:07 Urine Bacteria None /hpf (NONE) 12/05/21 16:07 Urine Mucus 2+ /hpf 12/05/21 16:07 Urine HCG, Qual Negative (Negative) 12/05/21 16:07 Discharge Plan Discharge Patient Disposition: Home Clinical Impression: Strain of lumbar region Qualifiers: Encounter type: initial encounter Qualified Code(s): S39.012A - Strain of muscle, fascia and tendon of lower back, initial encounter Condition: Stable Prescriptions: New Celebrex 100 mg capsule 100 mg PO BID PRN (Reason: pain) Qty: 30 0RF cyclobenzaprine 10 mg tablet 10 mg PO BID PRN (Reason: muscle spasm) Qty: 20 0RF No Action amoxicillin 875 mg tablet 875 mg PO BID 7 Days Qty: 14 0RF ondansetron HCl 4 mg tablet 4 mg PO Q6H PRN (Reason: N/V) Qty: 20 0RF Advil 200 mg Tablet 200 mg PO Q6H PRN (Reason: Pain) Tylenol 325 mg Capsule 325 mg PO QID PRN (Reason: Pain) Discharge Orders: Discharge ED (Routine); Ordered 12/05/21 Ordered By: Hilario Hopkins Discharge Diet: Regular Discharge Activity: Resume usual activity Patient Instructions: Low Back Strain (ED) Activity Restrictions/Additional Instructions: Follow-up with medical provider as directed in the next 7 to 10 days reevaluation. Take medications as prescribed. Rest and limit lifting and activity of the next couple days to allow for healing. Apply cold pack on lower back to help with symptoms. Return to the ER or your medical provider if condition worsens. Please read and understand discharge instructions. Thank you for choosing [facility] for your healthcare needs today. Please realize this is an emergency room and that we are providing you with a medical screening exam and this may not be complete and all inclusive of all the testing and or work up that you may need to determine your ailment or severity of your illness. It is very important that you follow up as instructed or that you return to the Emergency Department should you have concerns or if your condition changes or worsens in any way. Stand Alone Forms: Work/School Release Sign Out Sign Out Data: Patient Sign Out occurred on 12/05/21 at 17:19. Patient's care was discussed, and care was transferred from to Anselmo Muller DO. Patient Sign Out occurred on 12/05/21 at 17:31. Patient's care was discussed, and care was transferred from to MANNY Au. Coding Level of Care Code ED Salesforce Trainer for Chg Fwd Exam Expanded Problem Focused Documented by User: MANNY Au 12/06/21 01:08 HPI - Back Pain/Injury General: Chief Complaint: Back Pain/Injury Stated Complaint: Low back pain Time Seen by Provider: 12/05/21 14:38 [facility] ED PFSH: Surgical History Hx laparoscopic cholecystectomy (~2017) Family History Denies family history of Colon cancer Ovarian cancer Diabetes Clotting disorder Heart disease Hypercholesteremia Breast cancer Bleeding disorder Hypertension Uterine cancer Thyroid disease Stroke Social History Smoking and tobacco status: current every day smoker History of recent travel: No Additional social history: - Tobacco use: Alcohol use: Drug use: Course Vital Signs: Vital signs: Vital Signs Temperature 98.0 F 12/05/21 15:31 Pulse Rate 87 12/05/21 15:31 Respiratory Rate 18 12/05/21 15:31 Blood Pressure 148/60 12/05/21 15:31 Pulse Oximetry 100 12/05/21 15:31 Oxygen Delivery Me thod 12/05/21 15:31 MDM - Back Pain/Injury Medical Decision Making 25-year-old obese female in for acute on chronic low back pain. She denies any recent injuries, traumas, falls. she has a history of IV drug use. She denies possibility of . She was seen in the urgent care 3 days ago. She reports that they gave her Toradol and tested her urine for UTI. She reports that the Toradol did not help much and her urine was negative for UTI. Urine hCG negative. Given that she was having muscular lower back tenderness with no injury or trauma x-rays were not performed. Patient states that she did do some heavier lifting before pain started. She was diagnosed with strain of lumbar region and stable for discharge home. She was sent home with a prescription for a muscle relaxer and Celebrex for pain. Told to follow-up with PCP in the next week for reevaluation. Patient understood and agreed with plan. Labs I reviewed the patient's lab results. Laboratory Results Urine Color Yellow (Yellow) 12/05/21 16:07 Urine Appearance Clear (CLEAR) 12/05/21 16:07 Urine pH 6 (5-7) 12/05/21 16:[address] [place] 1.015 (1.005-1.030) 12/05/21 16:07 Urine Protein Neg (Negative) 12/05/21 16:07 Urine Glucose (UA) Norm (Normal) 12/05/21 16:07 Urine Ketones Negative (Negative) 12/05/21 16:07 Urine Blood 3+ (Negative) H 12/05/21 16:07 Urine Nitrate Negative (Negative) 12/05/21 16:07 Urine Bilirubin Neg (Negative) 12/05/21 16:07 Urine Urobilinogen Neg mg/dL (Negative) 12/05/21 16:07 Ur Leukocyte Esterase Negative (Negative) 12/05/21 16:07 Urine RBC 5-10 /hpf (0-2) H 12/05/21 16:07 Urine WBC Rare /hpf (0-5) 12/05/21 16:07 Ur Squamous Epith Cells 0-4 /hpf (0-5) H 12/05/21 16:07 Amorphous Sediment Not Reportable 12/05/21 16:07 Urine Bacteria None /hpf (NONE) 12/05/21 16:07 Urine Mucus 2+ /hpf 12/05/21 16:07 Urine HCG, Qual Negative (Negative) 12/05/21 16:07 Discharge Plan Discharge Patient Disposition: Home Clinical Impression: Strain of lumbar region Qualifiers: Encounter type: initial encounter Qualified Code(s): S39.012A - Strain of muscle, fascia and tendon of lower back, initial encounter Condition: Stable Prescriptions: New Celebrex 100 mg capsule 100 mg PO BID PRN (Reason: pain) Qty: 30 0RF cyclobenzaprine 10 mg tablet 10 mg PO BID PRN (Reason: muscle spasm) Qty: 20 0RF No Action amoxicillin 875 mg tablet 875 mg PO BID 7 Days Qty: 14 0RF ondansetron HCl 4 mg tablet 4 mg PO Q6H PRN (Reason: N/V) Qty: 20 0RF Advil 200 mg Tablet 200 mg PO Q6H PRN (Reason: Pain) Tylenol 325 mg Capsule 325 mg PO QID PRN (Reason: Pain) Discharge Orders: Discharge ED (Routine); Ordered 12/05/21 Ordered By: Hilario Hopkins Discharge Diet: Regular Discharge Activity: Resume usual activity Patient Instructions: Low Back Strain (ED) Activity Restrictions/Additional Instructions: Follow-up with medical provider as directed in the next 7 to 10 days reevaluation. Take medications as prescribed. Rest and limit lifting and activity of the next couple days to allow for healing. Apply cold pack on lower back to help with symptoms. Return to the ER or your medical provider if condition worsens. Please read and understand discharge instructions. Thank you for choosing [facility] for your healthcare needs today. Please realize this is an emergency room and that we are providing you with a medical screening exam and this may not be complete and all inclusive of all the testing and or work up that you may need to determine your ailment or severity of your illness. It is very important that you follow up as instructed or that you return to the Emergency Department should you have concerns or if your condition changes or worsens in any way. Stand Alone Forms: Work/School Release Sign Out Sign Out Data: Patient Sign Out occurred on 12/05/21 at 17:19. Patient's care was discussed, and care was transferred from to Anselmo Muller DO. Patient Sign Out occurred on 12/05/21 at 17:31. Patient's care was discussed, and care was transferred from to MANNY Au. Coding Level of Care Code ED Salesforce Trainer for Chg Fwd Exam Expanded Problem Focused Documented by User: Anselmo Muller DO 12/06/21 06:06 HPI - Back Pain/Injury General: Chief Complaint: Back Pain/Injury Stated Complaint: Low back pain Time Seen by Provider: 12/05/21 14:38 PFSH ED PFSH: Surgical History Hx laparoscopic cholecystectomy (~2017) Family History Denies family history of Colon cancer Ovarian cancer Diabetes Clotting disorder Heart disease Hypercholesteremia Breast cancer Bleeding disorder Hypertension Uterine cancer Thyroid disease Stroke Social History Smoking and tobacco status: current every day smoker History of recent travel: No Additional social history: - Tobacco use: Alcohol use: Drug use: Course Vital Signs: Vital signs: Vital Signs Temperature 98.0 F 12/05/21 15:31 Pulse Rate 87 12/05/21 15:31 Respiratory Rate 18 12/05/21 15:31 Blood Pressure 148/60 12/05/21 15:31 Pulse Oximetry 100 12/05/21 15:31 Oxygen Delivery Me thod 12/05/21 15:31 MDM - Back Pain/Injury Medical Decision Making 25-year-old obese female in for acute on chronic low back pain. She denies any recent injuries, traumas, falls. she has a history of IV drug use. She denies possibility of . She was seen in the urgent care 3 days ago. She reports that they gave her Toradol and tested her urine for UTI. She reports that the Toradol did not help much and her urine was negative for UTI. Urine hCG negative. Given that she was having muscular lower back tenderness with no injury or trauma x-rays were not performed. Patient states that she did do some heavier lifting before pain started. She was diagnosed with strain of lumbar region and stable for discharge home. She was sent home with a prescription for a muscle relaxer and Celebrex for pain. Told to follow-up with PCP in the next week for reevaluation. Patient understood and agreed with plan. Chart reviewed and patient discussed with midlevel. Agree with assessment and plan. Labs Laboratory Results Urine Color Yellow (Yellow) 12/05/21 16:07 Urine Appearance Clear (CLEAR) 12/05/21 16:07 Urine pH 6 (5-7) 12/05/21 16:[address] 1.015 (1.005-1.030) 12/05/21 16:07 Urine Protein Neg (Negative) 12/05/21 16:07 Urine Glucose (UA) Norm (Normal) 12/05/21 16:07 Urine Ketones Negative (Negative) 12/05/21 16:07 Urine Blood 3+ (Negative) H 12/05/21 16:07 Urine Nitrate Negative (Negative) 12/05/21 16:07 Urine Bilirubin Neg (Negative) 12/05/21 16:07 Urine Urobilinogen Neg mg/dL (Negative) 12/05/21 16:07 Ur Leukocyte Esterase Negative (Negative) 12/05/21 16:07 Urine RBC 5-10 /hpf (0-2) H 12/05/21 16:07 Urine WBC Rare /hpf (0-5) 12/05/21 16:07 Ur Squamous Epith Cells 0-4 /hpf (0-5) H 12/05/21 16:07 Amorphous Sediment Not Reportable 12/05/21 16:07 Urine Bacteria None /hpf (NONE) 12/05/21 16:07 Urine Mucus 2+ /hpf 12/05/21 16:07 Urine HCG, Qual Negative (Negative) 12/05/21 16:07 Discharge Plan Discharge Patient Disposition: Home Clinical Impression: Strain of lumbar region Qualifiers: Encounter type: initial encounter Qualified Code(s): S39.012A - Strain of muscle, fascia and tendon of lower back, initial encounter Condition: Stable Prescriptions: New Celebrex 100 mg capsule 100 mg PO BID PRN (Reason: pain) Qty: 30 0RF cyclobenzaprine 10 mg tablet 10 mg PO BID PRN (Reason: muscle spasm) Qty: 20 0RF No Action amoxicillin 875 mg tablet 875 mg PO BID 7 Days Qty: 14 0RF ondansetron HCl 4 mg tablet 4 mg PO Q6H PRN (Reason: N/V) Qty: 20 0RF Advil 200 mg Tablet 200 mg PO Q6H PRN (Reason: Pain) Tylenol 325 mg Capsule 325 mg PO QID PRN (Reason: Pain) Discharge Orders: Discharge ED (Routine); Ordered 12/05/21 Ordered By: Hilario Hopkins Discharge Diet: Regular Discharge Activity: Resume usual activity Patient Instructions: Low Back Strain (ED) Activity Restrictions/Additional Instructions: Follow-up with medical provider as directed in the next 7 to 10 days reevaluation. Take medications as prescribed. Rest and limit lifting and activity of the next couple days to allow for healing. Apply cold pack on lower back to help with symptoms. Return to the ER or your medical provider if condition worsens. Please read and understand discharge instructions. Thank you for choosing [facility] for your healthcare needs today. Please realize this is an emergency room and that we are providing you with a medical screening exam and this may not be complete and all inclusive of all the testing and or work up that you may need to determine your ailment or severity of your illness. It is very important that you follow up as instructed or that you return to the Emergency Department should you have concerns or if your condition changes or worsens in any way. Stand Alone Forms: Work/School Release Sign Out Sign Out Data: Patient Sign Out occurred on 12/05/21 at 17:19. Patient's care was discussed, and care was transferred from to Anselmo Muller DO. Patient Sign Out occurred on 12/05/21 at 17:31. Patient's care was discussed, and care was transferred from to MANNY Au. Coding Level of Care Code ED Salesforce Trainer for Chg Fwd Exam Expanded Problem Focused
[2021-12-05 16:53] LABS: Add Urine Microscopic? YES; Bilirubin Urine Neg (Negative); Blood Urine 3+ (Negative); Glucose Urine UA Norm (Normal); Ketones Urine Negative (Negative); Leukocyte Esterase Urine Negative (Negative); Nitrate Urine Negative (Negative); Protein Urine Neg (Negative); Specific Gravity, Urine 1.015 (1.005-1.030); Squamous Epithelial Cell Urine 0-4 /hpf (0-5); Urine Appearance Clear (CLEAR); Urine Color Yellow (Yellow); Urobilinogen Urine Neg (Negative); WBC Urine RARE /hpf (0-5); pH Urine 6 (5-7)
[2021-12-05 16:54] LABS: Add Urine Culture? No; Mucus Urine 2+ /hpf
[2021-12-05] MEDS: cyclobenzaprine 10 mg Tablet PO (17:11)
[2021-12-05] MEDS: ketorolac 30 mg/mL INJ IM (17:14)
== END 2021-12-05 18:40 | disposition home or self-care (01) ==
PROVIDERS: Nurse Practitioner Family; Emergency Provider Physician Assistant
DX: S39.012A Strain of muscle, fascia and tendon of lower back, initial encounter (principal); F17.210 Nicotine dependence, cigarettes, uncomplicated; X58.XXXA Exposure to other specified factors, initial encounter
CPT/HCPCS: 81001; 81025; 96372; 99284; J1885

== ENCOUNTER → 2022-01-01 11:03 | Outpatient (BNVA) | payer MEDICAID, SELFPAY | PROVIDERS: Visit Provider Obstetrics & Gynecology | DX: Z20.2 Contact with and (suspected) exposure to infections with a predominantly sexual mode of transmission (principal); Z12.4 Encounter for screening for malignant neoplasm of cervix; Z87.42 Personal history of other diseases of the female genital tract | CPT/HCPCS: 87491; 87591; 87661; 88175 ==

== ENCOUNTER → 2022-01-04 08:33 | Outpatient (BNVA) | payer MEDICAID, SELFPAY | PROVIDERS: Visit Provider Orthopaedic Surgery | DX: M54.9 Dorsalgia, unspecified (principal); M48.061 Spinal stenosis, lumbar region without neurogenic claudication | CPT/HCPCS: 72110; 99203; 99204 ==

== ENCOUNTER 2022-02-19 08:29 | Outpatient (CLI) | payer MEDICAID, SELFPAY ==
--- NOTE | 2022-02-19 08:45 | MR_ITS ---
WS: [id number] MRI LUMBAR SPINE NONCONTRAST TECHNIQUE: Sagittal T1, T2 and STIR imaging. Axial T1 and T2 imaging. CLINICAL INFORMATION: low back pain COMPARISON: None. FINDINGS: Mild lumbar curve. No acute compression. No high-grade central canal stenosis. L1-L2: Normal. L2-L3: Mild annular bulging. Mild RIGHT and no significant LEFT foraminal narrowing. Mild facet arthr opathy. Spinal canal is patent. L3-L4: Mild annular bulging. Tiny RIGHT foraminal protrusion with mild RIGHT foraminal narrowing. Spi nal canal and foramen are patent. Mild facet arthropathy. L4-L5: Mild annular bulging. Mild facet arthropathy. Tiny RIGHT foraminal protrusion with mild RIGHT and no LEFT foraminal narrowing. Mild facet arthropathy. Spinal canal is patent. L5-S1: Mild annular bulging. Mild facet arthropathy. Spinal canal and foramen are patent. Visualized pelvic bony structures: Normal. Paravertebral soft tissues: Normal. MR/MR lumbar spine wo con* [id number] IMPRESSION: 1. Mild lumbar curve. No acute compression. No high-grade central canal stenos is. 2. Tiny RIGHT foraminal protrusions L3-L4 and L4-L5 with mild RIGHT L3-L4 and L4-L5 foraminal narrowing. 3. Mild facet arthropathy L3-L5. 4. No other suspicious findings.
== END 2022-02-19 08:30 | disposition home or self-care (01) ==
LOC: RAD 08:31
PROVIDERS: Visit Provider Orthopaedic Surgery
DX: M51.26 Other intervertebral disc displacement, lumbar region (principal); M47.816 Spondylosis without myelopathy or radiculopathy, lumbar region
CPT/HCPCS: 72148

== ENCOUNTER → 2022-02-27 14:55 | Outpatient (BNVA) | payer MEDICAID, SELFPAY | PROVIDERS: Visit Provider Orthopaedic Surgery | DX: M54.9 Dorsalgia, unspecified (principal) | CPT/HCPCS: 99214 ==

== ENCOUNTER 2022-03-16 21:29 | Emergency (ER) | payer MEDICAID, SELFPAY ==
[2022-03-16 22:15] VITALS: BP 124/80; PULSE 83; RESP 18; TEMP 37.1; O2SAT 96; BMI 50.7
== END 2022-03-16 22:40 | disposition left against medical advice (07) ==
LOC: ER 21:53
PROVIDERS: Emergency Provider Family Medicine
DX: Z53.21 Procedure and treatment not carried out due to patient leaving prior to being seen by health care provider (principal)

== ENCOUNTER 2022-03-18 17:07 | Emergency (ER) | payer MEDICAID, SELFPAY ==
[2022-03-18 17:10] VITALS: BP 130/89; PULSE 89; RESP 16; TEMP 36.7; O2SAT 99
[2022-03-18] MEDS: HYDROcodone-acetaminophen 5-325 mg Tablet 1 TAB PO (20:13)
[2022-03-18 20:52] LABS: Basophils # 0.1 10^3/uL (0.0-0.1); Eosinophils # 0.2 10^3/uL (0.0-0.8); Eosinophils % 2.2 %; Hematocrit 43.9 % (37.0-47.0); Hemoglobin 14.6 g/dL (11.5-15.3); Lymphocytes # 2.9 10^3/uL (0.8-4.8); Lymphocytes % 35.1 %; Mean Corpuscular HGB Conc 33.3 g/dL (30.0-36.0); Mean Corpuscular Hemoglobin 30.7 pg (28.0-34.0); Mean Corpuscular Volume 92.4 fl (81-99); Mean Platelet Volume 10.1 fL (7.4-10.4); Monocytes # 0.6 10^3/uL (0.2-0.9); Monocytes % 7.4 %; Neutrophils # 4.45 10^3/uL (1.8-7.7); Neutrophils % 54.2 %; Nucleated Red Blood Cells % 0 %; Platelet Count 289 10^3/cmm (130-400); Red Blood Count 4.75 10^6/uL (4.1-5.3); Red Cell Distribution Width 12.9 % (12.1-15.1); White Blood Count 8.2 10^3/uL (4.0-10.0)
[2022-03-18 21:11] LABS: Alanine Aminotransferase 311 U/L (0-33); Albumin Level 4.1 g/dL (3.5-5.2); Alkaline Phosphatase 120 U/L (35-105); Blood Urea Nitrogen 12 mg/dL (6-20); Calcium 9.7 mg/dL (8.5-10.5); Carbon Dioxide 23 mmol/L (22-29); Chloride 101 mmol/L (98-107); Globulin 3.3 g/dL (1.3-4.6); Glomerular Filtration Rate 100.4 mL/min (90-130); Glucose 94 mg/dL (65-115); Osmolality Calculated 280 mOsm/kg (285-295); Sodium 135 mmol/L (136-145); Total Bilirubin 0.2 mg/dL (0.15-1.2); Total Protein 7.4 g/dL (6.6-8.7)
[2022-03-18 21:13] LABS: Anion Gap 14.9 (5-19); Aspartate Amino Transferase 61 U/L (0-32); Potassium 3.9 mmol/L (3.5-5.1)
[2022-03-18] MEDS: ondansetron 4 MG Tablet PO (21:20)
--- NOTE | 2022-03-18 21:38 | CTR_ITS ---
PROCEDURE INFORMATION: Exam: CT Neck With Contrast Exam date and time: 03/18/2022 10:12 PM Age: 26 years old Clinical indication: Abscess, cutaneous; Prior surgery; Surgery date: Post-operative (0-2 days); Surgery type: Multiple teeth extracted TECHNIQUE: Imaging protocol: Computed tomography of the neck with contrast. Radiation optimization: All CT scans at this facility use at least one of these dose optimization techniques: automated exposure control; mA and/or kV adjustment per patient size (includes targeted exams where dose is matched to clinical indication); or iterative reconstruction. Contrast material: OMNI 350; Contrast volume: 80 ml; Contrast route: INTRAVENOUS (IV); COMPARISON: CT angio chest PE protcl [id number] 08/25/2021 4:06 PM RADIATION DOSE METRICS: Total DLP (mGy-cm): 369.31 FINDINGS: Dental: There is recent appearing extraction of multiple lower teeth and all upper row teeth. See series 4, image 70. There is mild adjacent soft tissue swelling but no evidence of mass lesion, abscess, or bulky lymphadenopathy. Pharynx: No focal mucosal space suspicious lesion is noted. Larynx: Unremarkable. Epiglottis is unremarkable. Prevertebral and retropharyngeal spaces: Unremarkable. Salivary glands: Within normal limits. Glands are normal in size. Thyroid: The thyroid is not enlarged. No suspicious nodules are apparent. Lymph nodes: A few small bilateral cervical nodes have a physiologic and nonaggressive appearance. No necrotic lymphadenopathy. Trachea: Visualized trachea is unremarkable. Lungs: Unremarkable as visualized. Bones/joints: Unremarkable. No acute fracture. Soft tissues: Unremarkable. No significant soft tissue swelling. CT/CT neck w con* [id number] IMPRESSION: Multiple dental extractions as described, no definite large abscess or suspicious mass lesion noted. Around the mandible and maxilla, there is extensive soft tissue swelling. Recommend direct visualization. This area is difficult to assess on CT. If symptoms persist or progress, recommend short-term follow-up.
[2022-03-18 22:41] VITALS: BP 120/83; PULSE 81; RESP 14; TEMP 36.8; O2SAT 97
--- NOTE | 2022-03-18 23:33 | ED_ITS ---
HPI - Dental/Oral General: Chief complaint: Dental/Oral Stated complaint: infection of mouth Time Seen by Provider: 03/18/22 19:25 History of Present Illness: 26 yo female patient presents to ER with left sided facial swelling. Pt had 14 dental extractions 4 days ago. Pt started hav ing pain and swelling and was placed on clindamycin 2 days ago. Pt denies any fever. Pt denies any trismus. Pt denies any difficulty swallowing. Associated symptoms: Denies ear or mastoid pain, fever(s), odynophagia or tongue swelling Review of Systems Const: Denies: fever(s), chills, body aches, change in appetite, change in weight, fatigue, malaise or diaphoresis Eyes: Denies: change in vision, blurry vision, blind spots, photophobia, eye discomfort, eye discharge, eye redness, floaters or seeing flashes ENMT: Denies: throat pain, uvular edema, enlarged tonsils, odynophagia, hoarseness, swelling of lips/tongue, oral sores, bleeding gums, dental pain, dry mouth, ear or mastoid pain, ear discharge, change in hearing, tinnitus, disequilibrium, nasal discharge, nasal congestion, post nasal drip or sinus pain Card: Denies: chest pain, palpitations, irregular heart rhythm, edema, swellin g of feet/ankles, lightheadedness, syncope, pre-syncope, dyspnea on exertion, orthopnea, leg pain with exertion or acrocyanosis Resp: Denies: dyspnea, productive cough, non-productive cough, wheezing, stridor, pain on inspiration, change in phlegm color, hemoptysis or chest congestion GI: Denies: abdominal pain, nausea, vomiting, hematemesis, dysphagia, diarrhea, constipation, GI cramping, change in bowel habits or rectal pain : Denies: flank pain, difficulty voiding, dysuria, urinary frequency, urinary urgency, urinary hesitancy or hematuria Musc: Denies: neck pain, back pain, extremity pain, extremity swelling, joint pain, joint swelling, joint redness, joint warmth or deformity Skin/Breast: Denies: rash, pruritus, erythema, sores, new lesions, changes in skin color or dry skin Neuro: Denies: headache(s), numbness in extremities, weakness in extremities, sensory changes, lack of coordination, difficulty walking, frequent falls, dizziness, vertigo, confusion, behavioral changes, Slurred speech present, difficulty communicating thoughts or seizure-like activity Psych: Denies: anxiety, depression, suicidal ideation or homicidal ideation Endo: Denies: polyuria, polydipsia, tired all the time, cold intolerance, excessive sweating, flushing, hot flashes or heat intolerance Meño/Lymph: Denies: easy bruising, easy bleeding, petechiae, purpura, enlarged lymph nodes or tender lymph nodes All/Imm: Denies: urticaria, throat swelling, tongue swelling, facial swelling, acute wheezing or itchy eyes PFSH ED PFSH: Surgical History Hx laparoscopic cholecystectomy (~2017) Family History Denies family history of Colon cancer Ovarian cancer Diabetes Clotting disorder Heart disease Hypercholesteremia Breast cancer Bleeding disorder Hypertension Uterine cancer Thyroid disease Stroke Social History Smoking and tobacco status: current every day smoker cigarettes Packs smoked per day: 1 Alcohol intake: never History of recent travel: No Additional social history: - Tobacco use: Alcohol use: Drug use: Physical Exam Const: COMMON NORMALS: no acute distress, average body habitus, patient oriented x3, no limitations, healthy appearing, alert and well nourished HENMT: COMMON NORMALS: normocephalic, atraumatic, external ears normal and TM's normal bilaterally HEAD & SCALP: normocephalic and atraumatic FACE & SINUS: edema and Facial tenderness on exam of face and sinuses GENERAL EAR: hearing grossly impaired EXTERNAL EAR: Yes external ears normal and Yes mastoids normal TYMPANIC MEMBRANE: TM's normal bilaterally MOUTH: Normal oral and palatal mucosa present, lip normal, tongue normal, Normal salivary glands and ducts present and moist mucous membranes abnormal THROAT: posterior oropharynx normal, tonsils normal and uvula midline; no uvular edema Neck/C-Spine: COMMON NORMALS: full ROM, no lymphadenopathy, supple and no meningeal signs Resp: COMMON NORMALS: normal respiratory effort Cardio: COMMON NORMALS: regular rate and regular rhythm RATE: regular rate RHYTHM: regular rhythm Neuro: COMMON NORMALS: patient oriented x3 SENSORIUM/ORIENTATION: Yes alert MENINGEAL SIGNS: Yes no meningeal signs Skin: COMMON NORMALS: no rashes or lesions noted and turgor normal GENERAL SKIN EXAM: no rashes or lesions noted, elasticity normal and turgor normal Course Vital Signs: Vital signs: Vital Signs Temperature 98.2 F 03/18/22 22:41 Pulse Rate 81 03/18/22 22:41 Respiratory Rate 14 03/18/22 22:41 Blood Pressure 120/83 03/18/22 22:41 Pulse Oximetry 97 03/18/22 22:41 Oxygen Delivery Me thod 03/18/22 22:41 MDM - Dental/Oral Medical Decision Making Patient is well appearing non toxic and in no acute distress. 26 yo female patient presents to ER with left sided facial swelling. Pt had 14 dental extractions 4 days ago. Pt started having pain and swelling and was placed on clindamycin 2 days ago. Pt denies any fever. Pt denies any trismus. Pt denies any difficulty swallowing. VSS. CT reveals no evidence of large abscess or mass. there is soft tissue swelling likely secondary to 13 dental extractions. I will have patient continue current course of antibiotics and follow up with oral surgeon tomorrow Lab Data 03/18/22 20:46 03/18/22 20:[address] 03/18/22 21:38 IMPRESSION: Multiple dental extractions as described, no definite large abscess or suspicious mass lesion noted. Around the mandible and maxilla, there is extensive soft tissue swelling. Recommend direct visualization. This area is difficult to assess on CT. If symptoms persist or progress, recommend short-term follow-up. Laboratory Results WBC 8.2 10^3/uL (4.0-10.0) 03/18/22 20:46 RBC 4.75 10^6/uL (4.1-5.3) 03/18/22 20:46 Hgb 14.6 g/dL (11.5-15.3) 03/18/22 20:46 Hct 43.9 % (37.0-47.0) 03/18/22 20:46 MCV 92.4 fl (81-99) 03/18/22 20:46 MCH 30.7 pg (28.0-34.0) 03/18/22 20:46 MCHC 33.3 g/dL (30.0-36.0) 03/18/22 20:46 RDW 12.9 % (12.1-15.1) 03/18/22 20:46 Plt Count 289 10^3/cmm (130-400) 03/18/22 20:46 MPV 10.1 fL (7.4-10.4) 03/18/22 20:46 Neut % (Auto) 54.2 % 03/18/22 20:46 Lymph % (Auto) 35.1 % 03/18/22 20:46 [place] % (Auto) 7.4 % 03/18/22 20:46 Eos % (Auto) 2.2 % 03/18/22 20:46 Baso % (Auto) 1.0 % 03/18/22 20:46 Neut # (Auto) 4.45 10^3/uL (1.8-7.7) 03/18/22 20:46 Lymph # (Auto) 2.9 10^3/uL (0.8-4.8) 03/18/22 20:46 [place] # (Auto) 0.6 10^3/uL (0.2-0.9) 03/18/22 20:46 Eos # (Auto) 0.2 10^3/uL (0.0-0.8) 03/18/22 20:46 Baso # (Auto) 0.1 10^3/uL (0.0-0.1) 03/18/22 20:46 Nucleated RBC % (auto) 0 % 03/18/22 20:46 Nucleated RBCs # 0.0 /100WBC 03/18/22 20:46 Sodium 135 mmol/L (136-145) L 03/18/22 20:46 Potassium 3.9 mmol/L (3.5-5.1) 03/18/22 20:46 Chloride 101 mmol/L (98-107) 03/18/22 20:46 Carbon Dioxide 23 mmol/L (22-29) 03/18/22 20:46 Anion Gap 14.9 (5-19) 03/18/22 20:46 BUN 12 mg/dL (6-20) 03/18/22 20:46 Creatinine 0.7 mg/dL (0.5-0.9) 03/18/22 20:46 GFR Calculation 100.4 mL/min (90-130) 03/18/22 20:46 Glucose 94 mg/dL (65-115) 03/18/22 20:46 Calculated Osmolality 280 mOsm/kg (285-295) L 03/18/22 20:46 Calcium 9.7 mg/dL (8.5-10.5) 03/18/22 20:46 Total Bilirubin 0.2 mg/dL (0.15-1.2) 03/18/22 20:46 AST 61 U/L (0-32) H 03/18/22 20:46 ALT 311 U/L (0-33) H 03/18/22 20:46 Alkaline Phosphatase 120 U/L (35-105) H 03/18/22 20:46 Total Protein 7.4 g/dL (6.6-8.7) 03/18/22 20:46 Albumin 4.1 g/dL (3.5-5.2) 03/18/22 20:46 Globulin 3.3 g/dL (1.3-4.6) 03/18/22 20:46 Discharge Plan Discharge Patient Disposition: Home Clinical Impression: Pain, dental Condition: Stable Prescriptions: No Action amoxicillin 500 mg capsule 500 mg PO QID hydrocodone-acetaminophen 5-300 mg tablet 1 tab PO Q8H PRN clindamycin HCl 300 mg capsule 600 mg PO Q6H 7 Days Qty: 56 0RF ondansetron HCl 4 mg tablet 4 mg PO Q6H PRN (Reason: N/V) Qty: 20 0RF Nexplanon 68 mg implant subdermal ibuprofen 800 mg tablet 800 mg PO Q8H Qty: 60 0RF acetaminophen [Tylenol] 325 mg Capsule 325 mg PO QID PRN (Reason: Pain) Discharge Orders: Discharge ED (Routine); Ordered 03/18/22 Ordered By: Josseline Manzo Referrals: Brandy Hess DO [Primary Care Provider] - Discharge Diet: Advance as tolerated Discharge Activity: Increase activity as tolerated Patient Instructions: Dental Caries (Cavities), Opioid Safety, Pain Management Activity Restrictions/Additional Instructions: Please follow up with dentist for recheck this week Continue to take antibiotics as prescribed Return to the ER with any worsening of symptoms Stand Alone Forms: Work/School Release Coding 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
== END 2022-03-18 23:09 | disposition home or self-care (01) ==
PROVIDERS: Emergency Provider Registered Nurse; PCP Family Medicine
DX: K08.89 Other specified disorders of teeth and supporting structures (principal); F17.210 Nicotine dependence, cigarettes, uncomplicated
CPT/HCPCS: 70491; 80053; 85025; 99285; Q0162; Q9967

== ENCOUNTER → 2022-03-27 09:46 | Outpatient (BNVA) | payer MEDICAID, SELFPAY | PROVIDERS: PCP Family Medicine; Visit Provider Anesthesiology Pain Medicine | DX: M47.816 Spondylosis without myelopathy or radiculopathy, lumbar region (principal) | CPT/HCPCS: 99204 ==

== ENCOUNTER → 2022-04-18 14:51 | Outpatient (BNVA) | payer MEDICAID, SELFPAY | PROVIDERS: PCP Family Medicine; Visit Provider Anesthesiology Pain Medicine | DX: M47.816 Spondylosis without myelopathy or radiculopathy, lumbar region (principal) | CPT/HCPCS: 64493; 64494; 64495; J3490 ==

== ENCOUNTER → 2022-05-01 11:51 | Outpatient (BNVA) | payer MEDICAID, SELFPAY | PROVIDERS: PCP Family Medicine; Visit Provider Nurse Practitioner | DX: M54.9 Dorsalgia, unspecified (principal); J06.9 Acute upper respiratory infection, unspecified; H66.93 Otitis media, unspecified, bilateral | CPT/HCPCS: 81000; 87400; 87426 ==

== ENCOUNTER → 2022-05-09 14:28 | Outpatient (BNVA) | payer MEDICAID, SELFPAY | PROVIDERS: PCP Family Medicine; Visit Provider Anesthesiology Pain Medicine | DX: M47.816 Spondylosis without myelopathy or radiculopathy, lumbar region (principal) | CPT/HCPCS: 64493; 64494; 64495; J3490 ==

== ENCOUNTER 2022-05-11 11:12 | Emergency (ER) | payer MEDICAID, SELFPAY ==
[2022-05-11 11:25] VITALS: BMI 51.2
[2022-05-11 11:29] VITALS: BP 117/74; PULSE 92; RESP 18; TEMP 36.5; O2SAT 97
--- NOTE | 2022-05-11 12:24 | ED_ITS ---
HPI - Back Pain/Injury General: Chief Complaint: Back Pain/Injury Stated Complaint: Back pain Time Seen by Provider: 05/11/22 12:23 Source: patient Mode of arrival: ambulatory Limitations: no limitations History of Present Illness: Patient is a 26-year-old female here in the emergency department complaining of left-sided back pain. She states approximately 2 days ago she had left lumbar MBBs performed under fluoroscopic guidance by Dr. Wells for her facet arthritis. Patient states the day after she began having pain and states it worsened today. Patient states a few weeks ago she had the right side performed and did not have any complications related to it so was concerned regarding her pain today. She has not been running fevers. Denies saddle anesthesia or bowel or bladder dysfunction. MD elicited complaint: back pain and other (recent injections to back) Onset (ago): day(s) Timing: constant Severity: severe Similar Symptoms Previously: Yes Location: lumbar spine and left lower back Radiation: buttocks Relieving factors: none Associated symptoms: Reports no associated symptoms; Deny abdominal pain, chills, dysuria, fatigue, fever(s) or hematuria Work related injury: No Review of Systems Const: Denies: fever(s), chills, body aches, fatigue or malaise Card: Denies: chest pain Resp: Denies: dyspnea GI: Denies: abdominal pain : Denies: flank pain, dysuria or hematuria Musc: Reports: back pain; Denies: neck pain, extremity pain, extremity swelling, joint pain or joint s welling Skin/Breast: Denies: rash Neuro: Denies: headache(s), numbness in extremities, weakness in extremities or sensory changes [facility] ED PFSH: Surgical History Hx laparoscopic cholecystectomy (~2017) Family History Denies family history of Colon cancer Ovarian cancer Diabetes Clotting disorder Heart disease Hypercholesteremia Breast cancer Bleeding disorder Hypertension Uterine cancer Thyroid disease Stroke Social History Smoking and tobacco status: current every day smoker cigarettes Packs smoked per day: 1 Alcohol intake: never Additional social history: - Tobacco use: Alcohol use: Drug use: Physical Exam Const: COMMON NORMALS: no acute distress, patient oriented x3, no limitations and alert NUTRITIONAL APPEARANCE: obese morbidly obese ORIENTATION/CONSCIOUSNESS: Yes awake, Yes oriented to person, Yes oriented to place and Yes oriented to time Resp: COMMON NORMALS: normal respiratory effort and clear to auscultation bilaterally AUSCULTATION: clear to auscultation bilaterally Cardio: COMMON NORMALS: regular rate and regular rhythm RATE: regular rate RHYTHM: regular rhythm GI: COMMON NORMALS: Normal to inspection, nondistended, normoactive bowel sounds present, Soft to palpation and non-tender PALPATION: Yes Soft to palpation : COMMON NORMALS: Yes no CVA tenderness BLADDER/KIDNEY EXAM: Yes no CVA tenderness Back/Pelvis: COMMON NORMALS: no CVA tenderness THORACIC SPINE/UPPER BACK: No thoracic spinal tenderness and No paraspinal muscle tenderness LUMBAR SPINE/LOWER BACK: No lumbar spinal tenderness, Yes paraspinal muscle tenderness (pain near injection site and down into L buttock) Lumbar paraspinal muscle tenderness: left, No paraspinal muscle spasm and Yes straight leg raise negative bilaterally SACROILIAC JOINTS: Yes SI joints normal SACRUM: no tenderness COCCYX: no tenderness Extremity: COMMON NORMALS: normal to inspection GENERAL: Yes normal exam e xcept as noted Neuro: COMMON NORMALS: patient oriented x3, moves all extremities, no focal motor deficits and no sensory deficits noted SENSORIUM/ORIENTATION: Yes alert, Yes oriented to person, Yes oriented to place and Yes oriented to time MOTOR EXAM: 5/5 motor strength present throughout Course Vital Signs: Vital signs: Vital Signs Temperature 97.7 F 05/11/22 11:29 Pulse Rate 78 05/11/22 15:28 Respiratory Rate 16 05/11/22 15:28 Blood Pressure 117/74 05/11/22 11:29 Pulse Oximetry 99 05/11/22 15:28 Oxygen Delivery Me thod 05/11/22 15:03 MDM - Back Pain/Injury Medical Decision Making Patient feeling a little better after IM meds given here. In general her procedure has a very low complication rate. Unlikely this is related to an abscess/infection as symptoms started the next day. No systemic symptoms/fevers. Possible hematoma. No signs/symptoms of acute cord compression. Will place on steroids/NSAIDS/muscle relaxers and recommend she contact Dr. Wells on Saturday. Discharge Plan Discharge Patient Disposition: Home Clinical Impression: Back pain Qualifiers: Back pain location: low back pain Chronicity: acute Back pain laterality: left Sciatica presence: without sciatica Qualified Code(s): M54.50 - Low back pain, unspecified Condition: Stable Prescriptions: New methocarbamol 500 mg tablet 1,000 mg PO Q8H Qty: 30 0RF ibuprofen 800 mg tablet 800 mg PO Q8H PRN (Reason: pain) Qty: 20 0RF Medrol ([facility]) 4 mg tablets,dose pack See Rx Instructions .ROUTE .COMPLEX Qty: 21 0RF Rx Instructions: orally per package directions No Action ondansetron HCl 4 mg tablet 4 mg PO Q6H PRN (Reason: N/V) Qty: 20 0RF Nexplanon 68 mg implant subdermal bupivacaine (PF) 0.25 % (2.5 mg/mL) solution 3 ml Infiltration ONCE Qty: 1 0RF lidocaine (PF) 10 mg/mL (1 %) solution 3 ml Infiltration ONCE Qty: 1 0RF bupivacaine (PF) 0.25 % (2.5 mg/mL) solution 3 ml Infiltration ONCE Qty: 1 0RF azithromycin 500 mg tablet 500 mg PO DAILY 5 Days Qty: 5 0RF acetaminophen [Tylenol] 325 mg Capsule 325 mg PO QID PRN (Reason: Pain) Discharge Orders: Discharge ED (Routine); Ordered 05/11/22 Ordered By: Julia Osorio Referrals: Brandy Hess DO [Primary Care Provider] - Stand Alone Forms: Work/School Release Coding Level of Care Code 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
[2022-05-11] MEDS: dexamethasone 10 mg/mL INJ 8 MG IM (12:50)
[2022-05-11] MEDS: orphenadrine 30 mg/mL Inj 2 mL 60 MG IM (12:51)
[2022-05-11] MEDS: ketorolac 60 mg/2 mL INJ IM (12:51)
[2022-05-11] MEDS: morphine 4 mg/mL SDV 1 mL IM (12:51)
[2022-05-11] MEDS: ondansetron 4 MG Tablet PO (13:00)
[2022-05-11] MEDS: HYDROmorphone 1 mg/mL INJ 1 mL SUBCUT (14:22)
[2022-05-11 15:03] VITALS: PULSE 73; RESP 16; O2SAT 98
[2022-05-11 15:28] VITALS: PULSE 78; RESP 16; O2SAT 99
== END 2022-05-11 15:29 | disposition home or self-care (01) ==
PROVIDERS: Emergency Provider Physician Assistant; PCP Family Medicine
DX: M54.50 Low back pain, unspecified (principal); F17.210 Nicotine dependence, cigarettes, uncomplicated
CPT/HCPCS: 96372; 99284; J1100; J1170; J1885; J2270; J2360; Q0162

== ENCOUNTER 2022-07-08 16:03 | Emergency (ER) | payer MEDICAID, SELFPAY ==
[2022-07-08] VITALS (11 sets, daily range): BP systolic 95–131; BP diastolic 57–85; PULSE 88–95; RESP 16; TEMP 36.9; O2SAT 95–99; BMI 49.9
--- NOTE | 2022-07-08 16:26 | XRR_ITS ---
PROCEDURE INFORMATION: Exam: XR Chest Exam date and time: 07/08/2022 5:18 PM Age: 26 years old Clinical indication: Pain; Chest pressure; Additional info: Cp TECHNIQUE: Imaging protocol: Radiologic exam of the chest. Views: 1 view. COMPARISON: CR XR chest 1V portable [id number] 08/25/2021 1:32 PM FINDINGS: Lungs: No consolidation. Pleural spaces: No pleural effusion. No pneumothorax. Heart/Mediastinum: No cardiomegaly. Bones/joints: Unremarkable. XR/XR chest 1V portable [id number] IMPRESSION: 1. No acute abnormality demonstrated. 2. There is no interval change from the prior examination.
--- NOTE | 2022-07-08 16:26 | ECG_ITS ---
[facility] Test Date: 2022-07-08 Pat Name: Jessica Infante Department: Room: Gender: Female Architectural Draftsman: : 1995 Requested By: Shad Schmid Order Number: [id number] Brando MD: Damian Hernandez M.D. Measurements Intervals [place] Rate: 95 P: 84 SD: 144 QRS: 121 QRSD: 90 T: 6 QT: 344 QTc: 433 Interpretive Statements SINUS RHYTHM POSSIBLE LEFT ATRIAL ENLARGEMENT [-0.1mV P-WAVE IN V1/V2] POSSIBLE RIGHT VENTRICULAR HYPERTROPHY [SOME/ALL OF: PROMINENT R IN V1, LATE TRANSITION, RAD, TROY, SSS] INTERPRETATION BASED ON A DEFAULT AGE OF 40 YEARS Compared to ECG 08/25/2021 12:14:45 Atrial abnormality now present Electronically Signed On 07-09-2022 14:26:09 CDT by Damian Hernandez M.D. [email or web address]
[2022-07-08 18:09] LABS: Basophils # 0.1 10^3/uL (0.0-0.1); Basophils % 0.7 %; Eosinophils # 0.3 10^3/uL (0.0-0.8); Eosinophils % 2.4 %; Hematocrit 49.2 % (37.0-47.0); Hemoglobin 15.5 g/dL (11.5-15.3); Lymphocytes # 3.1 10^3/uL (0.8-4.8); Lymphocytes % 28.4 %; Mean Corpuscular HGB Conc 31.5 g/dL (30.0-36.0); Mean Corpuscular Hemoglobin 30.3 pg (28.0-34.0); Mean Corpuscular Volume 96.1 fl (81-99); Monocytes # 0.7 10^3/uL (0.2-0.9); Monocytes % 6.4 %; Neutrophils # 6.79 10^3/uL (1.8-7.7); Neutrophils % 61.6 %; Nucleated Red Blood Cells % 0 %; Platelet Count 268 10^3/cmm (130-400); Red Blood Count 5.12 10^6/uL (4.1-5.3); Red Cell Distribution Width 12.7 % (12.1-15.1)
--- NOTE | 2022-07-08 18:09 | ED_ITS ---
HPI - Chest Pain General: Chief Complaint: Chest Pain Stated Complaint: chest/back/head pain Time Seen by Provider: 07/08/22 18:09 History of Present Illness: Ms. Infante is a 26-year-old lady with history of obesity presenting to the emergency department for left-sided headache and chest pain. She reports onset of headache approximately 1 week ago primarily on the left side of her head. Additionally last night she she started having left-sided anterior chest pain with radiation to arm and left side of her neck and shoulder. Notes some nausea. Denies respiratory symptoms otherwise. Intensity symptoms is moderate to severe. Denies similar episodes in the past. No other specific changes in health, exacerbating, or alleviating factors identified. Onset (ago): week(s) Timing of current episode: constant Onset: during rest Pain location: left chest Pain radiation: left arm, neck and other Severity: moderate Relieving factors: nothing Exacerbating factors: nothing Review of Systems General: Reports: 10 or more systems reviewed and unremarkable except in HPI and below PFSH ED PFSH: Surgical History Hx laparoscopic cholecystectomy (~2017) Family History Denies family history of Colon cancer Ovarian cancer Diabetes Clotting disorder Heart disease Hypercholesteremia Breast cancer Bleeding disorder Hypertension Uterine cancer Thyroid disease Stroke Social History Smoking and tobacco status: current every day smoker cigarettes Packs smoked per day: 1 Alcohol intake: never Substance/Drug Use: never Additional social history: - Tobacco use: Alcohol use: Drug use: Physical Exam Const: COMMON NORMALS: alert GENERAL APPEARANCE: cooperative and well developed HENMT: COMMON NORMALS: normocephalic and atraumatic HEAD & SCALP: normocephalic and atraumatic Eye: COMMON NORMALS: conjunctivae normal CONJUNCTIVA: Yes conjunctivae normal SCLERA: sclerae normal Neck/C-Spine: COMMON NORMALS: supple and no meningeal signs GENERAL: Yes trachea midline Resp: COMMON NORMALS: normal respiratory effort and clear to auscultation bilaterally EFFORT & INSPECTION: Yes able to speak in complete sentences AUSCULTATION: clear to auscultation bilaterally Cardio: COMMON NORMALS: regular rate and regular rhythm RATE: regular rate RHYTHM: regular rhythm GI: COMMON NORMALS: Soft to palpation PALPATION: Yes Soft to palpation and No Tenderness to palpation present (GI) Extremity: GENERAL: Yes normal exam except as noted and No edema Neuro: COMMON NORMALS: moves all extremities SENSORIUM/ORIENTATION: Yes alert and No Orientation impaired MENINGEAL SIGNS: Yes no meningeal signs Psych: COMMON NORMALS: mental status grossly normal and Normal thought process present THOUGHT PROCESS: Normal thought process present Course Vital Signs: Vital signs: Vital Signs Temperature 98.5 F 07/08/22 16:19 Pulse Rate 88 07/08/22 18:32 Respiratory Rate 16 07/08/22 19:34 Blood Pressure 95/66 07/08/22 22:49 Pulse Oximetry 96 07/08/22 22:49 Oxygen Delivery Me thod Room Air 07/08/22 16:19 MDM - Chest Pain Medical Decision Making 26-year-old lady presenting to the emergency department due to concern over chest pain and also headache. Exam as above. Patient is nontoxic and there are no focal neurologic deficits or obvious provoking physical exam maneuvers of symptoms. Labs with mild hemoconcentration and dehydration. Troponin and repeat troponin are negative. hCG is negative. D-dimer is negative. Chest x-ray with no acute finding. Given persistence of symptoms despite treatment CT imaging is appropriate. CT demonstrates no acute pathology to explain symptoms. During ED course patient treated with analgesia and antiemetic. Left prior to reassessment after GI cocktail. Left prior to receiving discharge instructions and paperwork. Did not notify RN or physician. Medical Records I reviewed the patient's medical records. Lab Data I reviewed the patient's lab results. 07/08/22 17:50 07/08/22 17:50 Radiology Impressions Chest X-Ray 07/08/22 16:26 IMPRESSION: 1. No acute abnormality demonstrated. 2. There is no interval change from the prior examination. Chest/Abdomen/Pelvis CT 07/08/22 19:53 IMPRESSION: 1. Mild atelectasis at the lung bases. No consolidative pulmonary infiltrate noted. 2. No acute abnormality demonstrated. 3. There is no interval change from the prior examination. IMPRESSION: No acute abnormality demonstrated in the abdomen and pelvis. Laboratory Results WBC 11.0 10^3/uL (4.0-10.0) H 07/08/22 17:50 RBC 5.12 10^6/uL (4.1-5.3) 07/08/22 17:50 Hgb 15.5 g/dL (11.5-15.3) H 07/08/22 17:50 Hct 49.2 % (37.0-47.0) H 07/08/22 17:50 MCV 96.1 fl (81-99) 07/08/22 17:50 MCH 30.3 pg (28.0-34.0) 07/08/22 17:50 MCHC 31.5 g/dL (30.0-36.0) 07/08/22 17:50 RDW 12.7 % (12.1-15.1) 07/08/22 17:50 Plt Count 268 10^3/cmm (130-400) 07/08/22 17:50 MPV 10.0 fL (7.4-10.4) 07/08/22 17:50 Neut % (Auto) 61.6 % 07/08/22 17:50 Lymph % (Auto) 28.4 % 07/08/22 17:50 [place] % (Auto) 6.4 % 07/08/22 17:50 Eos % (Auto) 2.4 % 07/08/22 17:50 Baso % (Auto) 0.7 % 07/08/22 17:50 Neut # (Auto) 6.79 10^3/uL (1.8-7.7) 07/08/22 17:50 Lymph # (Auto) 3.1 10^3/uL (0.8-4.8) 07/08/22 17:50 [place] # (Auto) 0.7 10^3/uL (0.2-0.9) 07/08/22 17:50 Eos # (Auto) 0.3 10^3/uL (0.0-0.8) 07/08/22 17:50 Baso # (Auto) 0.1 10^3/uL (0.0-0.1) 07/08/22 17:50 Nucleated RBC % (auto) 0 % 07/08/22 17:50 Nucleated RBCs # 0.0 /100WBC 07/08/22 17:50 D-Dimer 0.55 ug/mIFEU (0-0.59) 07/08/22 19:32 Sodium 133 mmol/L (136-145) L 07/08/22 17:50 Potassium 3.6 mmol/L (3.5-5.1) 07/08/22 17:50 Chloride 100 mmol/L (98-107) 07/08/22 17:50 Carbon Dioxide 24 mmol/L (22-29) 07/08/22 17:50 Anion Gap 12.6 (5-19) 07/08/22 17:50 BUN 14 mg/dL (6-20) 07/08/22 17:50 Creatinine 0.6 mg/dL (0.5-0.9) 07/08/22 17:50 GFR Calculation 119.9 mL/min (90-130) 07/08/22 17:50 Glucose 100 mg/dL (65-115) 07/08/22 17:50 Calculated Osmolality 277 mOsm/kg (285-295) L 07/08/22 17:50 Calcium 8.8 mg/dL (8.5-10.5) 07/08/22 17:50 Total Bilirubin 0.2 mg/dL (0.15-1.2) 07/08/22 17:50 AST 18 U/L (0-32) 07/08/22 17:50 ALT 36 U/L (0-33) H 07/08/22 17:50 Alkaline Phosphatase 78 U/L (35-105) 07/08/22 17:50 Troponin T Baseline Cancelled 07/08/22 17:50 Troponin T 120 Minute 6.00 ng/L (0-10) 07/08/22 19:32 Delta Troponin T 0 ABS# (0-10) 07/08/22 19:32 NT-Pro-B Natriuret Pep 36 pg/mL (0-125) 07/08/22 17:50 Total Protein 7.2 g/dL (6.6-8.7) 07/08/22 17:50 Albumin 4.0 g/dL (3.5-5.2) 07/08/22 17:50 Globulin 3.2 g/dL (1.3-4.6) 07/08/22 17:50 Lipase 65 U/L (13-60) H 07/08/22 17:50 HCG, Qual Negative (Negative) 07/08/22 17:50 Discharge Plan Discharge Patient Disposition: Left Against Medical Advice Clinical Impression: Chest pain, Abdominal pain, Headache Condition: Stable Prescriptions: No Action ondansetron HCl 4 mg tablet 4 mg PO Q6H PRN (Reason: N/V) Qty: 20 0RF Nexplanon 68 mg implant subdermal bupivacaine (PF) 0.25 % (2.5 mg/mL) solution 3 ml Infiltration ONCE Qty: 1 0RF lidocaine (PF) 10 mg/mL (1 %) solution 3 ml Infiltration ONCE Qty: 1 0RF bupivacaine (PF) 0.25 % (2.5 mg/mL) solution 3 ml Infiltration ONCE Qty: 1 0RF azithromycin 500 mg tablet 500 mg PO DAILY 5 Days Qty: 5 0RF gabapentin 100 mg capsule 100 mg PO TID acetaminophen [Tylenol] 325 mg Capsule 325 mg PO QID PRN (Reason: Pain) methocarbamol 500 mg tablet 1,000 mg PO Q8H Qty: 30 0RF ibuprofen 800 mg tablet 800 mg PO Q8H PRN (Reason: pain) Qty: 20 0RF Medrol ([facility]) 4 mg tablets,dose pack See Rx Instructions .ROUTE .COMPLEX Qty: 21 0RF Rx Instructions: orally per package directions Referrals: Brandy Hess DO [Primary Care Provider] - Discharge Diet: Advance as tolerated and Clear Liquid Discharge Activity: Increase activity as tolerated Patient Instructions: Chest Pain (ED), Acute Headache (ED), Abdominal Pain (ED) Activity Restrictions/Additional Instructions: Thank you for visiting the emergency department. You were seen and evaluated for chest and abdominal pain as well as headache. The exact cause of your symptoms is unclear however does not appear to need hospitalization at this time. You may use [id number] medications such as acetaminophen and ibuprofen for pain however please do not exceed the daily recommended dosage as listed on the packaging and please keep in mind that many namebrand medications contain the same active ingredients. Please avoid these medications if previously instructed to do so by another physician due to other underlying medical condition. Please follow-up with your primary care provider. Return to the emergency department for anything that you are concerned about and feel needs emergency department evaluation. Coding Level of Care Code ED [facility] for Jannette Stoner
--- NOTE | 2022-07-08 18:26 | ECG_ITS ---
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 Measurements Intervals [place] Rate: 85 P: 50 TX: 159 QRS: 56 QRSD: 89 T: 23 QT: 354 QTc: 422 Interpretive Statements SINUS RHYTHM Compared to ECG 07/08/2022 16:22:12 Atrial abnormality no longer present Electronically Signed On 07-09-2022 14:31:30 CDT by Damian Hernandez M.D. [id number]
[2022-07-08 18:28] LABS: Troponin(5th) Baseline 6 ng/L (0-10)
[2022-07-08 18:38] LABS: Alanine Aminotransferase 36 U/L (0-33); Alkaline Phosphatase 78 U/L (35-105); Anion Gap 12.6 (5-19); Aspartate Amino Transferase 18 U/L (0-32); Blood Urea Nitrogen 14 mg/dL (6-20); Calcium 8.8 mg/dL (8.5-10.5); Carbon Dioxide 24 mmol/L (22-29); Chloride 100 mmol/L (98-107); Globulin 3.2 g/dL (1.3-4.6); Glomerular Filtration Rate 119.9 mL/min (90-130); Glucose 100 mg/dL (65-115); NT Pro B Type Natriuretic Pept 36 pg/mL (0-125); Osmolality Calculated 277 mOsm/kg (285-295); Potassium 3.6 mmol/L (3.5-5.1); Sodium 133 mmol/L (136-145); Total Bilirubin 0.2 mg/dL (0.15-1.2); Total Protein 7.2 g/dL (6.6-8.7)
[2022-07-08] MEDS: aspirin 81 mg Chew Tablet 324 MG PO (18:43)
[2022-07-08 18:49] LABS: Lipase 65 U/L (13-60)
[2022-07-08] MEDS: ketorolac 60 mg/2 mL INJ 15 MG IM (19:34)
[2022-07-08] MEDS: morphine 4 mg/mL SDV 1 mL IM (19:34)
--- NOTE | 2022-07-08 19:44 | PC.NURSE ---
Report received from Abdi Horton RN. Pt is connected to monitors and sitting up in bed - her mother at bedside. pt reports pain 8/10. She was originally refusing to have IV - pt agreed to have RN start ultrasound IV.
[2022-07-08 19:50] LABS: D Dimer 0.55 ug/mIFEU (0-0.59)
--- NOTE | 2022-07-08 19:53 | CTR_ITS ---
PROCEDURE INFORMATION: Exam: CT Chest With Contrast; Diagnostic Exam date and time: 07/08/2022 9:44 PM Age: 26 years old Clinical indication: Abdominal pain; Generalized; Chest pressure; Prior surgery; Surgery date: 6+ months; Surgery type: Cholecystectomy; Additional info: L sided chest pain radiating to arm and back TECHNIQUE: Imaging protocol: Diagnostic computed tomography of the chest with contrast. Radiation optimization: All CT scans at this facility use at least one of these dose optimization techniques: automated exposure control; mA and/or kV adjustment per patient size (includes targeted exams where dose is matched to clinical indication); or iterative reconstruction. Contrast material: OMNI 350; Contrast volume: 100 ml; Contrast route: INTRAVENOUS (IV); REPORTING DATA: Count of CT and Cardiac NM exams in prior 12 months: This patient has received 2 known CTs and 0 known cardiac nuclear medicine studies in the 12 months prior to the current study. COMPARISON: CT angio chest PE protcl [id number] 08/25/2021 4:06 PM RADIATION DOSE METRICS: Total DLP (mGy-cm): 649.7 FINDINGS: Lungs: Mild atelectasis at the lung bases. No consolidative pulmonary infiltrate noted. Pleural spaces: Unremarkable. No pneumothorax. No pleural effusion. Heart: No cardiomegaly. No pericardial effusion. Lymph nodes: Unremarkable. No enlarged lymph nodes. Vasculature: Unremarkable. No aortic aneurysm. Bones/joints: Unremarkable. No acute fracture. Soft tissues: Unremarkable. PROCEDURE INFORMATION: Exam: CT Abdomen And Pelvis With Contrast Exam date and time: 07/08/2022 9:44 PM Age: 26 years old Clinical indication: Abdominal pain; Generalized; Chest pressure; Prior surgery; Surgery date: 6+ months; Surgery type: Cholecystectomy; Additional info: L sided chest pain radiating to arm and back TECHNIQUE: Imaging protocol: Computed tomography of the abdomen and pelvis with contrast. Radiation optimization: All CT scans at this facility use at least one of these dose optimization techniques: automated exposure control; mA and/or kV adjustment per patient size (includes targeted exams where dose is matched to clinical indication); or iterative reconstruction. Contrast material: OMNI 350; Contrast volume: 100 ml; Contrast route: INTRAVENOUS (IV); REPORTING DATA: Count of CT and Cardiac NM exams in prior 12 months: This patient has received 2 known CTs and 0 known cardiac nuclear medicine studies in the 12 months prior to the current study. COMPARISON: CT abdomen pelvis w con* [id number] 12/31/2016 9:57 PM RADIATION DOSE METRICS: Total DLP (mGy-cm): 1128.2 FINDINGS: Liver: The liver is unremarkable in appearance. Gallbladder and bile ducts: The gallbladder is surgically absent. Pancreas: The pancreas is normal in appearance. No pancreatic duct dilatation. Spleen: No focal splenic lesion. No splenomegaly. Adrenal glands: The adrenal glands appear within normal limits. Kidneys and ureters: The kidneys are normal in morphology. No hydronephrosis. No solid mass. Stomach and bowel: No acute gastric abnormality demonstrated. The small bowel is unremarkable as demonstrated. No acute abnormality/inflammatory change of the colon. Appendix: The appendix is normal in appearance. No evidence of appendicitis. Intraperitoneal space: No pneumoperitoneum. No significant fluid collection. Vasculature: No abdominal aortic aneurysm. Lymph nodes: No pathologically enlarged lymph nodes. Urinary bladder: Unremarkable as visualized. Reproductive: Uterus and ovaries appear unremarkable. Bones/joints: Unremarkable. No acute osseous abnormality. Soft tissues: The soft tissues are unremarkable as demonstrated. CT/CT chest abdpel w/*[id number] IMPRESSION: 1. Mild atelectasis at the lung bases. No consolidative pulmonary infiltrate noted. 2. No acute abnormality demonstrated. 3. There is no interval change from the prior examination. IMPRESSION: No acute abnormality demonstrated in the abdomen and pelvis.
[2022-07-08] MEDS: ondansetron 2 mg/ML SDV 2 mL 4 MG IM (19:58)
[2022-07-08 20:38] LABS: Troponin 5 2HR Delta 0 ABS# (0-10)
[2022-07-08 21:13] LABS: HCG, Serum Qual Negative (Negative)
[2022-07-08] MEDS: iohexol 350 mg/mL 500 mL Btl (per mL) IV (21:22)
[2022-07-08] MEDS: lidocaine 2% viscous 15 ML, aluminum-mag hydrox-simethicon 30 ML, sucralfate oral liq 1 GM PO (22:20)
== END 2022-07-08 22:51 | disposition left against medical advice (07) ==
PROVIDERS: Emergency Medicine; Emergency Provider Emergency Medicine; PCP Family Medicine
DX: R07.9 Chest pain, unspecified (principal); R10.9 Unspecified abdominal pain; R51.9 Headache, unspecified; Z53.21 Procedure and treatment not carried out due to patient leaving prior to being seen by health care provider; F17.210 Nicotine dependence, cigarettes, uncomplicated
CPT/HCPCS: 36415; 71045; 71260; 74177; 80053; 83690; 83880; 84484; 84703; 85025; 85378; 93005; 96372; 99285; J1885; J2270; J2405; Q9967

== ENCOUNTER → 2022-10-15 15:32 | Outpatient (BNVA) | payer MEDICAID, SELFPAY | PROVIDERS: PCP Family Medicine; Visit Provider Emergency Medicine | DX: S49.91XA Unspecified injury of right shoulder and upper arm, initial encounter (principal); W19.XXXA Unspecified fall, initial encounter | CPT/HCPCS: 73030 ==

== ENCOUNTER → 2023-01-17 15:47 | Outpatient (BNVA) | payer MEDICAID, SELFPAY | PROVIDERS: PCP Family Medicine; Visit Provider Obstetrics & Gynecology | DX: Z20.2 Contact with and (suspected) exposure to infections with a predominantly sexual mode of transmission (principal); N92.1 Excessive and frequent menstruation with irregular cycle; Z01.419 Encounter for gynecological examination (general) (routine) without abnormal findings; Z97.5 Presence of (intrauterine) contraceptive device | CPT/HCPCS: 84702; 86780; 86803; 87340; 87491; 87591; 87806 ==

== ENCOUNTER 2023-05-27 10:39 | Outpatient (CLI) | payer MEDICAID, SELFPAY ==
--- NOTE | 2023-05-27 11:07 | MR_ITS ---
WS: [id number] MRI LUMBAR SPINE NONCONTRAST TECHNIQUE: Sagittal T1, T2 and STIR imaging. Axial T1 and T2 imaging. CLINICAL INFORMATION: CHRONIC BILAT LOW BACK PAIN W/BILAT SCIATICA COMPARISON: MRI 03/08 FINDINGS: Mild lumbar curve. No acute compression. No high-grade central canal stenosis. L1-L2: Mild facet arthropathy. Spinal canal and foramina are patent. L2-L3: Mild annular bulging. Mild facet arthropathy. Spinal canal and foramen are patent. L3-L4: Mild annular bulging. Mild facet arthropathy. Tiny RIGHT foraminal protrusion with mild RIGHT foraminal narrowing. L4-L5: No significant disc bulging. Moderate facet arthropathy. Spinal canal and foramen are patent. L5-S1: No significant disc bulging. Mild facet arthropathy. Spinal canal and foramen are patent. Visualized pelvic bony structures: Normal. Paravertebral soft tissues: Normal. IMPRESSION: 1. Mild lumbar curve. No acute compression. No high-grade central canal stenosis. 2. Mild to moderate facet arthropathy L3-L4 and L4-5 3. Tiny RIGHT foraminal protrusion L3-4 slightly encroaches on the exiting RIGHT L3 nerve root simil ar to previous. 4. No other suspicious findings.
--- NOTE | 2023-05-27 11:07 | MR_ITS ---
WS: [id number] MRI RIGHT SHOULDER NONCONTRAST TECHNIQUE: Sagittal T2, coronal T1, T2 and proton density imaging. Axial gradient PDE imaging. CLINICAL INFORMATION: CHRONIC R SHOULDER PAIN COMPARISON: None. FINDINGS: Mild degenerative arthritis AC joint with slight edema. Mild downsloping acromion. Slight narrowing o f the subacromial space. Normal supraspinatus. Normal infraspinatus. Normal teres minor. Subscapulari s is normal in appearance. Normal biceps tendon in the bicipital groove. Glenoid labrum appears gross ly normal. Normal biceps labral anchor. Normal bone marrow signal in the humerus and glenoid. No othe r suspicious findings. IMPRESSION: 1. Mild degenerative arthritis AC joint with slight edema. Slight narrowing subacromial space. 2. Normal rotator cuff. 3. Biceps tendon appears intact within the bicipital groove. 4. No other acute findings.
== END 2023-05-27 10:40 | disposition home or self-care (01) ==
LOC: RAD 10:39
PROVIDERS: PCP Family Medicine; Visit Provider Family Medicine
DX: M19.011 Primary osteoarthritis, right shoulder (principal); M51.16 Intervertebral disc disorders with radiculopathy, lumbar region; G89.29 Other chronic pain; M47.816 Spondylosis without myelopathy or radiculopathy, lumbar region
CPT/HCPCS: 72148; 73030; 73221

== ENCOUNTER → 2023-10-14 13:46 | Outpatient (BNVA) | payer MEDICAID, SELFPAY | PROVIDERS: PCP Family Medicine; Visit Provider Nurse Practitioner | DX: J02.9 Acute pharyngitis, unspecified (principal) | CPT/HCPCS: 87880 ==

== ENCOUNTER → 2023-11-20 16:26 | Outpatient (BNVA) | payer OTHER, MEDICAID, SELFPAY | PROVIDERS: PCP Family Medicine; Visit Provider Specialist | DX: G56.03 Carpal tunnel syndrome, bilateral upper limbs (principal); M06.4 Inflammatory polyarthropathy | CPT/HCPCS: 36415; 73130; 80053; 84550; 85025; 85651; 86140; 86225; 86235; 86431 ==

== ENCOUNTER 2024-01-24 14:27 | Emergency (ER) | payer OTHER, MEDICAID, SELFPAY ==
[2024-01-24 15:04] VITALS: BP 135/78; PULSE 88; RESP 18; TEMP 37; O2SAT 98; BMI 58.2
--- NOTE | 2024-01-24 16:04 | ED_ITS ---
Documented by User: MANNY Chavarria 01/24/24 16:21 HPI - Extremity Problem General: Chief complaint: Back Pain/Injury Stated complaint: burn pain Cruz olson radiates to hip Time Seen by Provider: 01/24/24 15:20 Source: patient and family Mode of arrival: ambulatory Limitations: no limitations History of Present Illness: Patient is a 28-year-old female who presents to ED today with a complaint of a burning cramping sensation involving her left lower extremity. Patient states about a week ago she began noticing similar sensations to the right leg but states that has subsided and over the past several days she has been having symptoms only involving the left lower extremity. Patient does have a longstanding history of lower back pain. She has sought multiple medical evaluations for this including pain management with Dr. Wells, Dr. Louis, as well as primary care. She states she had MRI of her lumbar spine in May of this year. Patient states she also has a history of fibromyalgia diagnosed at the age of 13. Patient has not noticed any swelling to her lower extremities although admittedly is obese so would have difficult discerning this. She has not noticed any color or temperature changes to the extremity. She is ambulatory here without assistance. She was seen via telehealth last week and told it sounds like shingles and placed on meds for this. Never had a rash. She reportedly was seen at [facility] today and had mentioned she had one episode of urinary incontinence last week so they sent her to the emergency department. Patient states she has not had any further episodes of urinary incontinence or urinary retention. She has not had any bowel incontinence. She denies saddle anesthesia. They also told her it could be a blood clot. MD Complaint: extremity pain and other (back pain) Quality: burning and other (cramping) Relieving factors: nothing Exacerbating factors: nothing Associated symptoms: Reports no associated symptoms; Deny chest pain, fever(s) or rash Related Data Home Medications Medication Instructions Recorded Confirmed acetaminophen 325 mg capsule 325 mg PO QID PRN Pain 08/25/21 11/20/23 (Tylenol) etonogestrel 68 mg subdermal subdermal 01/01/22 11/20/23 implant (Nexplanon) famotidine 20 mg tablet (Pepcid) 20 mg PO DAILY 10/15/22 11/20/23 metoprolol tartrate 25 mg tablet 25 mg PO BID 06/11/23 11/20/23 Previous Rx's Medication Instructions Recorded ondansetron HCl 4 mg tablet 4 mg PO Q6H PRN N/V #20 tabs 07/25/21 ibuprofen 800 mg tablet 800 mg PO Q8H PRN pain #20 tabs 05/11/22 hydrocodone 5 mg-acetaminophen 325 1 tab PO Q4H PRN pain 7 days #28 10/15/22 mg tablet tabs meloxicam 15 mg tablet 15 mg PO DAILY #30 tabs 05/27/23 pseudoephedrine-guaifenesin ER 120 1 tab PO Q12H PRN cold symptoms 08/24/23 mg-1,200 mg tab,extend release #30 tabs 12hr (Mucinex D Maximum Strength) Allergies Allergy/AdvReac Type Severity Reaction Status Date / Time cephalexin [From Keflex] Allergy RASH Verified 01/24/24 15:11 Review of Systems Const: Denies: fever(s), chills, body aches, fatigue or malaise Card: Denies: chest pain Resp: Denies: dyspnea GI: Denies: abdominal pain, vomiting or diarrhea : Denies: flank pain, dysuria or hematuria Musc: Reports: back pain and extremity pain; Denies: neck pain, extremity swelling, joint pain, joint swelling, joint redness, joint warmth, joint stiffness, limited range of motion or muscle weakness Skin/Breast: Denies: rash Neuro: Denies: headache(s), numbness in extremities, weakness in extremities, sensory changes or dizziness PFS ED PFSH: Surgical History Hx laparoscopic cholecystectomy (~2017) Family History Denies family history of Colon cancer Ovarian cancer Diabetes Clotting disorder Heart disease Hypercholesteremia Breast cancer Bleeding disorder Hypertension Uterine cancer Thyroid disease Stroke Social History Smoking and tobacco/nicotine status: current every day tobacco/nicotine user cigarettes Packs smoked per day: 1 Alcohol intake: never Substance/Drug Use: never Additional social history: - Tobacco use: Alcohol use: Drug use: Physical Exam Const: COMMON NORMALS: no acute distress, patient oriented x3, no limitations and alert GENERAL APPEARANCE: cooperative NUTRITIONAL APPEARANCE: obese morbidly obese (BMI is 58.2) Neck/C-Spine: COMMON NORMALS: full ROM, no lymphadenopathy and no meningeal signs GENERAL: Yes normal visual inspection Chest: COMMONS NORMALS: normal inspection of the chest and normal palpation of entire chest wall Resp: COMMON NORMALS: normal respiratory effort and clear to auscultation bilaterally AUSCULTATION: clear to auscultation bilaterally Cardio: COMMON NORMALS: regular rate and regular rhythm RATE: regular rate RHYTHM: regular rhythm GI: COMMON NORMALS: Normal to inspection, nondistended, normoactive bowel sounds present, Soft to palpation and non-tender INSPECTION: Yes normal to inspection PALPATION: Yes Soft to palpation OTHER: limited due to body habitus : COMMON NORMALS: Yes no CVA tenderness BLADDER/KIDNEY EXAM: Yes no CVA tenderness Back/Pelvis: COMMON NORMALS: no CVA tenderness and straight leg raise negative bilaterally LUMBAR SPINE/LOWER BACK: Yes lumbar spinal tenderness, Yes paraspinal muscle tenderness Lumbar paraspinal muscle tenderness: right, No mass present and Yes straight leg raise negative bilaterally SACROILIAC JOINTS: Yes SI joint(s) abnormal SI joint details: tender to palpation SACRUM: no tenderness COCCYX: no tenderness Extremity: COMMON NORMALS: normal to inspection, full ROM, capillary refill normal, no joint enlargement, no clubbing, cyanosis or edema and no pedal edema NARRATIVE EXTREMITY EXAM: exam somewhat limited due to body habitus; she has easily palpable pulses/brisk cap refill/sensation normal; no obvious swelling between bilateral LEs; she is tender to left calf with equivocal Patricia's sign; full ROM of joints; no evidence for infection GENERAL: Yes normal exam except as noted Neuro: COMMON NORMALS: patient oriented x3, moves all extremities, no focal motor deficits and no sensory deficits noted SENSORIUM/ORIENTATION: Yes alert MENINGEAL SIGNS: Yes no meningeal signs Skin: COMMON NORMALS: no rashes or lesions noted GENERAL SKIN EXAM: no rashes or lesions noted Course Vital Signs: Vital signs: Vital Signs Temperature 98.6 F 01/24/24 15:04 Pulse Rate 88 01/24/24 15:04 Respiratory Rate 18 01/24/24 15:04 Blood Pressure 135/78 01/24/24 15:04 Pulse Oximetry 99 01/24/24 17:58 Oxygen Delivery Me thod Room Air 01/24/24 17:58 MDM - Extremity (Nontraumatic) Lab Data Radiology Impressions Venous Duplex 01/24/24 16:04 IMPRESSION: No evidence of deep vein thrombosis. Discharge Plan Discharge Patient Disposition: Home Clinical Impression: Left lumbar radiculopathy Condition: Stable Prescriptions: No Action famotidine [Pepcid] 20 mg tablet 20 mg PO DAILY hydrocodone-acetaminophen 5-325 mg tablet 1 tab PO Q4H PRN (Reason: pain) 7 Days Qty: 28 0RF pseudoephedrine-guaifenesin [Mucinex D Maximum Strength] 120-1,200 mg tablet extended release 12 hr 1 tab PO Q12H PRN (Reason: cold symptoms) Qty: 30 0RF ondansetron HCl 4 mg tablet 4 mg PO Q6H PRN (Reason: N/V) Qty: 20 0RF Nexplanon 68 mg implant subdermal bupivacaine (PF) 0.25 % (2.5 mg/mL) solution 3 ml Infiltration ONCE Qty: 1 0RF lidocaine (PF) 10 mg/mL (1 %) solution 3 ml Infiltration ONCE Qty: 1 0RF bupivacaine (PF) 0.25 % (2.5 mg/mL) solution 3 ml Infiltration ONCE Qty: 1 0RF meloxicam 15 mg tablet 15 mg PO DAILY Qty: 30 0RF Rx Instructions: Take one Tablet daily metoprolol tartrate 25 mg tablet 25 mg PO BID acetaminophen [Tylenol] 325 mg Capsule 325 mg PO QID PRN (Reason: Pain) ibuprofen 800 mg tablet 800 mg PO Q8H PRN (Reason: pain) Qty: 20 0RF Discharge Orders: Discharge ED (Routine); Ordered 01/24/24 Ordered By: Ayaz Sanabria Referrals: Brandy Hess DO [Primary Care Provider] - Patient Instructions: Lumbar Radiculopathy (ED) Activity Restrictions/Additional Instructions: Follow-up with your primary care provider as discussed. Your ultrasound today was negative for any deep vein thrombosis. Continue taking home medications and return with any new or worsening Sign Out Sign Out Data: Patient Sign Out occurred on 01/24/24 at 17:09. Patient's care was discussed, and care was transferred from MANNY Chavarria to MANNY Carlin. Coding Level of Care Code ED Data Processing Supervisor for Chg Fwd Documented by User: MANNY Carlin 01/25/24 00:02 HPI - Extremity Problem General: Chief complaint: Back Pain/Injury Stated complaint: burn pain Cruz olson radiates to hip Time Seen by Provider: 01/24/24 15:20 Related Data Home Medications Medication Instructions Recorded Confirmed acetaminophen 325 mg capsule 325 mg PO QID PRN Pain 08/25/21 11/20/23 (Tylenol) etonogestrel 68 mg subdermal subdermal 01/01/22 11/20/23 implant (Nexplanon) famotidine 20 mg tablet (Pepcid) 20 mg PO DAILY 10/15/22 11/20/23 metoprolol tartrate 25 mg tablet 25 mg PO BID 06/11/23 11/20/23 Previous Rx's Medication Instructions Recorded ondansetron HCl 4 mg tablet 4 mg PO Q6H PRN N/V #20 tabs 07/25/21 ibuprofen 800 mg tablet 800 mg PO Q8H PRN pain #20 tabs 05/11/22 hydrocodone 5 mg-acetaminophen 325 1 tab PO Q4H PRN pain 7 days #28 10/15/22 mg tablet tabs meloxicam 15 mg tablet 15 mg PO DAILY #30 tabs 05/27/23 pseudoephedrine-guaifenesin ER 120 1 tab PO Q12H PRN cold symptoms 08/24/23 mg-1,200 mg tab,extend release #30 tabs 12hr (Mucinex D Maximum Strength) Allergies Allergy/AdvReac Type Severity Reaction Status Date / Time cephalexin [From Keflex] Allergy RASH Verified 01/24/24 15:11 PFSH ED PFSH: Surgical History Hx laparoscopic cholecystectomy (~2017) Family History Denies family history of Colon cancer Ovarian cancer Diabetes Clotting disorder Heart disease Hypercholesteremia Breast cancer Bleeding disorder Hypertension Uterine cancer Thyroid disease Stroke Social History Smoking and tobacco/nicotine status: current every day tobacco/nicotine user cigarettes Packs smoked per day: 1 Alcohol intake: never Substance/Drug Use: never Additional social history: - Tobacco use: Alcohol use: Drug use: Course Vital Signs: Vital signs: Vital Signs Temperature 98.6 F 01/24/24 15:04 Pulse Rate 88 01/24/24 15:04 Respiratory Rate 18 01/24/24 15:04 Blood Pressure 135/78 01/24/24 15:04 Pulse Oximetry 99 01/24/24 17:58 Oxygen Delivery Id thod Room Air 01/24/24 17:58 MDM - Extremity (Nontraumatic) Medical Decision Making Care of patient transferred over to vt by dayshift provider. History of chronic back pain and reportedly has had fibromyalgia since a young age. Has had her back pain worked up by MRI, was encouraged to present to the emergency department to have a blood clot to her left lower extremity ruled out by primary care. She is morbidly obese on physical exam, physical exam was somewhat limited because of this. States that her primary concern was to rule out blood clot, ultrasound venous duplex of left lower extremity was negative. Upon relaying this information to her she was relieved, and encouraged her to follow- up with primary care for further workup of her back pain. All other questions and concerns addressed. Lab Data Radiology Impressions Venous Duplex 01/24/24 16:04 IMPRESSION: No evidence of deep vein thrombosis. All radiology interpretation(s) finalized by discharge Discharge Plan Discharge Patient Disposition: Home Clinical Impression: Left lumbar radiculopathy Condition: Stable Prescriptions: No Action famotidine [Pepcid] 20 mg tablet 20 mg PO DAILY hydrocodone-acetaminophen 5-325 mg tablet 1 tab PO Q4H PRN (Reason: pain) 7 Days Qty: 28 0RF pseudoephedrine-guaifenesin [Mucinex D Maximum Strength] 120-1,200 mg tablet extended release 12 hr 1 tab PO Q12H PRN (Reason: cold symptoms) Qty: 30 0RF ondansetron HCl 4 mg tablet 4 mg PO Q6H PRN (Reason: N/V) Qty: 20 0RF Nexplanon 68 mg implant subdermal bupivacaine (PF) 0.25 % (2.5 mg/mL) solution 3 ml Infiltration ONCE Qty: 1 0RF lidocaine (PF) 10 mg/mL (1 %) solution 3 ml Infiltration ONCE Qty: 1 0RF bupivacaine (PF) 0.25 % (2.5 mg/mL) solution 3 ml Infiltration ONCE Qty: 1 0RF meloxicam 15 mg tablet 15 mg PO DAILY Qty: 30 0RF Rx Instructions: Take one Tablet daily metoprolol tartrate 25 mg tablet 25 mg PO BID acetaminophen [Tylenol] 325 mg Capsule 325 mg PO QID PRN (Reason: Pain) ibuprofen 800 mg tablet 800 mg PO Q8H PRN (Reason: pain) Qty: 20 0RF Discharge Orders: Discharge ED (Routine); Ordered 01/24/24 Ordered By: Ayaz Sanabria Referrals: Brandy Hess DO [Primary Care Provider] - Patient Instructions: Lumbar Radiculopathy (ED) Activity Restrictions/Additional Instructions: Follow-up with your primary care provider as discussed. Your ultrasound today was negative for any deep vein thrombosis. Continue taking home medications and return with any new or worsening Sign Out Sign Out Data: Patient Sign Out occurred on 01/24/24 at 17:09. Patient's care was discussed, and care was transferred from MANNY Chavarria to MANNY Carlin. Coding Level of Care Code ED Data Processing Supervisor for Jannette Stoner
--- NOTE | 2024-01-24 16:04 | USR_ITS ---
PROCEDURE INFORMATION: Exam: US Duplex Left Lower Extremity Veins, Limited Exam date and time: 01/24/2024 4:43 PM Age: 28 years old Clinical indication: Pain; Leg, upper; Left; Additional info: Pain/cramping/burning TECHNIQUE: Imaging protocol: Real-time duplex ultrasound of the left extremity with 2-D gao scale, color Doppler flow and spectral waveform analysis including responses to compression and other maneuvers (when performed) with image documentation. Limited exam focused on the left lower extremity veins. COMPARISON: US OB transvaginal [id number] 12/14/2019 2:38 PM FINDINGS: Left deep veins: Unremarkable. The common femoral, femoral, proximal profunda femoral and popliteal veins are patent without thrombus. Normal Doppler waveforms. Normal compressibility and/or augmentation response. Superficial veins: Greater saphenous vein at the saphenofemoral junction is patent without thrombus. Soft tissues: Unremarkable. US/[place] [id number] IMPRESSION: No evidence of deep vein thrombosis.
[2024-01-24 17:58] VITALS: O2SAT 99
== END 2024-01-24 18:10 | disposition home or self-care (01) ==
PROVIDERS: Emergency Provider Physician Assistant; PCP Family Medicine
DX: M54.16 Radiculopathy, lumbar region (principal); F17.210 Nicotine dependence, cigarettes, uncomplicated
CPT/HCPCS: 93971; 99284

== ENCOUNTER → 2024-02-10 14:54 | Outpatient (BNVA) | payer MEDICAID, SELFPAY | PROVIDERS: PCP Family Medicine; Visit Provider Obstetrics & Gynecology | DX: Z00.00 Encounter for general adult medical examination without abnormal findings (principal) | CPT/HCPCS: 83001 ==

== ENCOUNTER → 2024-02-18 15:08 | Outpatient (BNVA) | payer MEDICAID, SELFPAY | PROVIDERS: PCP Family Medicine; Visit Provider Obstetrics & Gynecology | DX: R10.2 Pelvic and perineal pain (principal) | CPT/HCPCS: 76830 ==

== ENCOUNTER 2024-05-20 12:55 | Outpatient (CLI) | payer OTHER, MEDICAID, SELFPAY ==
--- NOTE | 2024-05-20 12:58 | MR_ITS ---
WS: [id number] MRI HEAD WITH CONTRAST TECHNIQUE: Sagittal T1, T2 axial, T2 axial FLAIR, axial susceptibility weighted imaging, axial diffusion weighted images, and coronal T2 images were obtained. Pre and post-T1 axial and post T1 coronal images. ADC and FSPGR images. CLINICAL INFORMATION: VISUAL PROBLEMS/NEW ONSET OF HEADACHES/SLURRING OF SPEECH COMPARISON: None. FINDINGS: No evidence of restricted diffusion to suggest acute ischemia. Ventricular system and basilar cisterns are patent. Normal posterior fossa. Normal vascular flow voids at the skull base. No extra-axial fluid collections. No evidence of mass or mass effect. Paranasal sinuses and mastoid air cells are well aerated. Normal posterior nasopharynx. No suspicious intracranial signal abnormalities. No hemosiderin on the susceptibility weighted images. Normal optic chiasm and pituitary infundibulum. Temporal lobes hippocampal formations are normal in appearance. No other suspicious findings. No abnormal gadolinium enhancement. Normal dural venous sinuses. MR/MR head wo/w con [id number] IMPRESSION: 1. No evidence of restricted diffusion to suggest acute ischemia. 2. Normal optic chiasm and pituitary infundibulum. 3. No suspicious intracranial signal abnormalities. 4. No abnormal gadolinium enhancement.
[2024-05-20] MEDS: gadobenate dimeglumine 20 mL vial IV (15:52)
== END 2024-05-20 12:56 | disposition home or self-care (01) ==
LOC: RAD 12:56
PROVIDERS: PCP Family Medicine
DX: H54.7 Unspecified visual loss (principal); R51.9 Headache, unspecified; R47.81 Slurred speech
CPT/HCPCS: 70553

== ENCOUNTER 2024-05-24 14:21 | Emergency (ER) | payer OTHER, MEDICAID, SELFPAY ==
[2024-05-24 14:33] VITALS: BP 157/97; PULSE 97; RESP 17; TEMP 36.6; O2SAT 98; BMI 63.5
[2024-05-24 17:05] VITALS: BP 145/97; O2SAT 96
[2024-05-24 17:35] VITALS: BP 141/86
--- NOTE | 2024-05-24 17:42 | W.ED.HA ---
HPI - Headache General: Chief Complaint: Headache Stated Complaint: head pain, face swelling Time Seen by Provider: 05/24/24 16:59 History of Present Illness: This patient is a 28-year-old white female who presents to the emergency department stating that she has had visual problems and pressure in her head for quite some time now. She is currently being worked up for this. She did undergo an MRI on the fifth of this month. I did review that report it was normal. She has not had any nausea or vomiting. No fever. Related Data Home Medications ?Medication ?Instructions ?Recorded ?Confirmed acetaminophen 325 mg capsule 325 mg PO QID PRN Pain 08/25/21 04/11/24 (Tylenol) etonogestrel 68 mg subdermal subdermal 01/01/22 04/11/24 implant (Nexplanon) famotidine 20 mg tablet (Pepcid) 20 mg PO DAILY 10/15/22 04/11/24 metoprolol tartrate 25 mg tablet 25 mg PO BID 06/11/23 04/11/24 Previous Rx's ?Medication ?Instructions ?Recorded ondansetron HCl 4 mg tablet 4 mg PO Q6H PRN N/V #20 tabs 07/25/21 ibuprofen 800 mg tablet 800 mg PO Q8H PRN pain #20 tabs 05/11/22 hydrocodone 5 mg-acetaminophen 325 1 tab PO Q4H PRN pain 7 days #28 10/15/22 mg tablet tabs meloxicam 15 mg tablet 15 mg PO DAILY #30 tabs 05/27/23 amoxicillin 500 mg tablet 500 mg PO BID #14 tabs 04/11/24 Allergies Allergy/AdvReac Type Severity Reaction Status Date / Time cephalexin (From Keflex) Allergy RASH Verified 04/11/24 13:49 Review of Systems General: Reports: 10 or more systems reviewed and unremarkable except in HPI and below Neuro: Reports: headache(s) PFSH ED PFSH: Surgical History Hx laparoscopic cholecystectomy (~2017) Family History Denies family history of Colon cancer Ovarian cancer Diabetes Clotting disorder Heart disease Hypercholesteremia Breast cancer Bleeding disorder Hypertension Uterine cancer Thyroid disease Stroke Social History Smoking and tobacco/nicotine status: former use of tobacco/nicotine Alcohol intake: never Substance/Drug Use: never Additional social history: - Tobacco use: Alcohol use: Drug use: Physical Exam Const: COMMON NORMALS: no acute distress, patient oriented x3 and no limitations GENERAL APPEARANCE: cooperative and comfortable HENMT: COMMON NORMALS: normocephalic, atraumatic, Normal nasal mucous membranes and turbinates present, moist oral mucous membranes and oropharynx normal HEAD & SCALP: normal to inspection, normocephalic and atraumatic FACE & SINUS: normal facial exam NOSE: Normal nasal mucous membranes and turbinates present Eye: COMMON NORMALS: Equal, round and reactive pupils present, EOMs intact bilaterally and conjunctivae normal GENERAL EYE: appearance normal, both eyes and all related structures CONJUNCTIVA: Yes conjunctivae normal PUPIL: Yes Equal, round and reactive pupils present Neck/C-Spine: COMMON NORMALS: supple and no JVD Chest: COMMONS NORMALS: normal inspection of the chest Resp: COMMON NORMALS: normal respiratory effort and clear to auscultation bilaterally AUSCULTATION: clear to auscultation bilaterally Cardio: COMMON NORMALS: no JVD, regular rate, regular rhythm, No gallops present (Cardio), No murmurs present (Cardio) and No rub (Cardio) RATE: regular rate RHYTHM: regular rhythm GI: COMMON NORMALS: Normal to inspection, nondistended, normoactive bowel sounds present, Soft to palpation and non-tender AUSCULTATION: Yes normoactive bowel sounds PALPATION: Yes Soft to palpation : COMMON NORMALS: Yes no CVA tenderness BLADDER/KIDNEY EXAM: Yes no CVA tenderness Back/Pelvis: COMMON NORMALS: no CVA tenderness and thoracic and lumbar spine normal to inspection Extremity: COMMON NORMALS: normal to inspection Neuro: COMMON NORMALS: patient oriented x3 and CN's II-XII intact bilaterally Psych: COMMON NORMALS: mental status grossly normal, Normal thought process present and cooperative THOUGHT PROCESS: Normal thought process present Skin: COMMON NORMALS: no rashes or lesions noted, turgor normal and no jaundice GENERAL SKIN EXAM: no rashes or lesions noted and turgor normal Course Vital Signs: Vital signs: Vital Signs Temperature 97.8 F 05/24/24 14:33 Pulse Rate 97 05/24/24 14:33 Respiratory Rate 17 05/24/24 14:33 Blood Pressure 141/86 05/24/24 17:35 Pulse Oximetry 96 05/24/24 17:05 Oxygen Delivery Me thod Room Air 05/24/24 14:33 MDM - Headache Medical Decision Making Patient was given an injection of Toradol for her headache tonight. We discussed that she needs to follow-up with her primary care physician and/or neurologist for ongoing workup. She was discharged in stable condition. No radiology studies performed this visit Discharge Plan Discharge Patient Disposition: Home Clinical Impression: Headache Qualifiers: Headache type: unspecified Headache chronicity pattern: chronic headache Intractability: not intractable Qualified Code(s): R51.9 - Headache, unspecified Condition: Stable Prescriptions: No Action famotidine [Pepcid] 20 mg tablet 20 mg PO DAILY hydrocodone-acetaminophen 5-325 mg tablet 1 tab PO Q4H PRN (Reason: pain) 7 Days Qty: 28 0RF amoxicillin 500 mg tablet 500 mg PO BID Qty: 14 0RF ondansetron HCl 4 mg tablet 4 mg PO Q6H PRN (Reason: N/V) Qty: 20 0RF Nexplanon 68 mg implant subdermal bupivacaine (PF) 0.25 % (2.5 mg/mL) solution 3 ml Infiltration ONCE Qty: 1 0RF lidocaine (PF) 10 mg/mL (1 %) solution 3 ml Infiltration ONCE Qty: 1 0RF bupivacaine (PF) 0.25 % (2.5 mg/mL) solution 3 ml Infiltration ONCE Qty: 1 0RF meloxicam 15 mg tablet 15 mg PO DAILY Qty: 30 0RF Rx Instructions: Take one Tablet daily metoprolol tartrate 25 mg tablet 25 mg PO BID acetaminophen [Tylenol] 325 mg Capsule 325 mg PO QID PRN (Reason: Pain) ibuprofen 800 mg tablet 800 mg PO Q8H PRN (Reason: pain) Qty: 20 0RF Discharge Orders: Discharge ED (Routine); Ordered 05/24/24 Ordered By: Joseph Tatum Referrals: Brandy Hess DO [Primary Care Provider] - Patient Instructions: Acute Headache (DC) Activity Restrictions/Additional Instructions: Follow-up with your primary care provider and/or neurologist for ongoing workup. Print Language: Prydeinig Coding Level of Care Code ED Rate Manager for Jannette Stoner
[2024-05-24] MEDS: ketorolac 60 mg/2 mL INJ IM (17:56)
== END 2024-05-24 18:02 | disposition home or self-care (01) ==
PROVIDERS: Emergency Provider Emergency Medicine; PCP Family Medicine
DX: R51.9 Headache, unspecified (principal); Z87.891 Personal history of nicotine dependence
CPT/HCPCS: 96372; 99284; J1885

== ENCOUNTER 2024-06-17 12:52 | Outpatient (CLI) | payer OTHER, MEDICAID, SELFPAY ==
--- NOTE | 2024-06-17 12:56 | MR_ITS ---
WS: [id number] MRI NECK WITH CONTRAST TECHNIQUE: Noncontrast axial T1, axial T2 FSE fat sat, coronal T2 fat sat, coronal T1, coronal T1 fat sat, sagittal T2 fat sat, plus contrast enhanced coronal, sagittal, and axial T1 fat sat images obtained. CLINICAL INFORMATION: OPTIC DISC EDEMA COMPARISON: MRI 05/20/2024 FINDINGS: No evidence of restricted diffusion to suggest acute ischemia. No suspicious intracranial signal abnormalities. Normal gao-white differentiation. Normal posterior fossa. Normal vascular flow voids at the skull base. No extra- axial fluid collections. No evidence of mass or mass effect. Paranasal sinuses and mastoid air cells are well aerated. No evidence of optic nerve edema or optic neuritis. Normal optic chiasm and pituitary infundibulum. No abnormal intracranial enhancement. Incidental slightly low-lying similar tonsils. Minimal crowding of the foramen magnum. Normal fourth ventricle. No hydrocephalus. MR/MR orbit face neck wo/w* [id number] IMPRESSION: 1. No evidence of restricted diffusion to suggest acute ischemia. 2. No suspicious intracranial signal abnormalities. 3. No evidence of optic nerve edema or optic neuritis. 4. Normal optic chiasm and pituitary infundibulum.
[2024-06-17] MEDS: gadobenate dimeglumine 20 mL vial IV (13:51)
== END 2024-06-17 12:53 | disposition home or self-care (01) ==
PROVIDERS: PCP Family Medicine
DX: H47.10 Unspecified papilledema (principal)
CPT/HCPCS: 70543

== ENCOUNTER → 2024-07-27 11:17 | Outpatient (BNVA) | payer MEDICAID, SELFPAY | PROVIDERS: PCP Family Medicine; Visit Provider Internal Medicine Rheumatology | DX: M06.9 Rheumatoid arthritis, unspecified (principal) | CPT/HCPCS: 36415; 80076; 82306; 82565; 83520; 85025; 85651; 86140; 86200; 86431; 86480; 86704; 86803; 87340 ==

== ENCOUNTER 2024-08-18 15:44 | Outpatient (CLI) | payer MEDICAID, SELFPAY ==
[2024-08-18 16:28] LABS: Basophils # 0.1 10^3/uL (0.0-0.1); Basophils % 0.6 %; Eosinophils # 0.4 10^3/uL (0.0-0.8); Eosinophils % 3.2 %; Lymphocytes # 3.2 10^3/uL (0.8-4.8); Lymphocytes % 26.1 %; Mean Corpuscular HGB Conc 32.7 g/dL (30-55); Mean Corpuscular Hemoglobin 28.4 pg (27-33); Mean Corpuscular Volume 86.8 fl (85-98); Mean Platelet Volume 9.3 fL (7.4-10.4); Monocytes # 0.9 10^3/uL (0.2-0.9); Monocytes % 7.2 %; Neutrophils % 62.3 %; Nucleated Red Blood Cells % 0 %; Platelet Count 253 10^3/cmm (157-399); Red Blood Count 5.53 10^6/uL (3.85-5.65); Red Cell Distribution Width 13.5 % (12.1-15.1); White Blood Count 12.38 10^3/uL (3.29-11.43)
[2024-08-18 16:40] LABS: Erythrocyte Sedimentation Rate 19 mm/hr (0-15)
[2024-08-18 16:57] LABS: Alanine Aminotransferase 28 U/L (0-33); Albumin Level 3.9 g/dL (3.5-5.2); Alkaline Phosphatase 98 U/L (35-105); Aspartate Amino Transferase 19 U/L (0-32); C Reactive Protein 6.5 mg/L (0.0-4.9); Globulin 3.1 g/dL (1.3-4.6); Glomerular Filtration Rate 65.6 mL/min (90-130); Total Bilirubin 0.3 mg/dL (0.15-1.2)
== END 2024-08-18 15:45 | disposition home or self-care (01) ==
PROVIDERS: PCP Family Medicine; Visit Provider Internal Medicine Rheumatology
DX: Z79.899 Other long term (current) drug therapy (principal)
CPT/HCPCS: 36415; 80076; 82565; 85025; 85651; 86140